=== PATIENT | female | born 1985 | race Caucasian/White ===

== ENCOUNTER 2023-06-07 20:08 | Emergency (ER) | payer MEDICAID, SELFPAY ==
[2023-06-07 20:14] VITALS: BP 176/88; PULSE 78; O2SAT 98
[2023-06-07 20:41] VITALS: BP 172/103; PULSE 79; RESP 18; TEMP 36.6; O2SAT 97; BMI 34.7
[2023-06-07 21:03] LABS: MANUAL DIFF FLAG NO
[2023-06-07 21:06] LABS: Appearance Urine Cloudy; Color Urine Yellow; Glucose Urine UA Negative (Negative); Leukocyte Esterase Urine Small (1+) (Negative); Nitrite Urine Negative (Negative); Specific Gravity - Urine 1.015 (1.005-1.025); UMIC TRIGGER UACC YES; Urine Blood Negative (Negative); Urine Ketones Negative (Negative); Urine Protein Negative (Neg-Trace)
[2023-06-07 21:08] LABS: Bacteria Urine 1+ (None Seen); Basophils Absolute Auto 0.1 X10*3/uL (0.0-0.2); Basophils Percent Auto 0.8 % (0-2); Eosinophils Absolute Auto 0.5 X10*3/uL (0.0-0.4); Eosinophils Percent Auto 5.4 % (0-4); Hematocrit 41.8 % (37.0-47.0); Hemoglobin 13.9 g/dl (12.0-16.0); Hyaline Casts Urine 0-2 /LPF (0-2); Imm Gran Abs Auto 0.02 X10*3/uL (0.00-0.03); Imm Gran Pct Auto 0.2 % (0.0-0.4); Lymphocytes Percent Auto 32.9 % (20-40); Mean Corpuscular HGB Conc 33.3 g/dl (31.0-35.0); Mean Corpuscular Hemoglobin 28.7 pg (27.0-33.0); Mean Corpuscular Volume 86.4 fL (80.0-98.0); Mean Platelet Volume 10.1 fL (9.4-12.3); Monocytes Absolute Auto 0.7 X10*3/uL (0.1-1.2); Monocytes Percent Auto 7.6 % (2-11); Neutrophils Absolute Auto 4.8 x10*3/uL (2.0-8.3); Neutrophils Percent Auto 53.1 % (45-73); Platelet Count 166 X10*3/uL (160-400); RBC Urine 0-2 /HPF (0-2); Red Blood Count 4.84 X10*6/uL (4.20-5.50); Red Cell Distribution Width 13.3 % (11.0-16.0); UACC Culture Trigger YES
[2023-06-07 21:18] LABS: Alanine Aminotransferase 7 U/L (0-31); Albumin Level 4.2 g/dL (3.5-5.0); Alkaline Phosphatase 60 U/L (39-117); Anion Gap 11 (12-20); Aspartate Amino Transferase 12 U/L (5-31); Bilirubin Direct 0.2 mg/dL (0.0-0.5); Bilirubin Total 0.3 mg/dL (0.0-1.0); Blood Urea Nitrogen 11 mg/dL (9-16); Calcium 9.1 mg/dL (8.4-10.2); Carbon Dioxide 28 mmol/L (22-29); Chloride 105 mmol/L (96-108); Creatinine Clr Calc Pharmacy 100.6; Estimated Glomerular Filt Rate > 60; Glucose Random 89 mg/dL (60-115); Lipase 22 U/L (8-78); Potassium 4.1 mmol/L (3.3-5.1); Sodium 140 mmol/L (135-145); Total Protein 6.9 g/dL (6.5-8.0)
[2023-06-07 21:26] LABS: HCG Quantitative < 2 mIU/mL
[2023-06-07 21:41] LABS: Influenza A PCR NEGATIVE (Negative); Influenza B PCR NEGATIVE (Negative); Resp Syncy Virus RNA Qual PCR NEGATIVE (Negative); SARS COV2 PCR INHOUSE NEGATIVE (Negative)
--- NOTE | 2023-06-08 01:06 | ED.GENADULT ---
HPI - General Adult General Chief complaint: Abdominal Pain Stated complaint: N/V as of this morning, possible Time Seen by Provider: 06/08/23 01:00 Source: patient, RN notes reviewed and old records reviewed Mode of arrival: EMS Limitations: no limitations History of Present Illness HPI narrative: 37-year-old female presents for evaluation of abdominal pain and vomiting. She reports that her symptoms started this morning. Denies any fevers, chills. She reports that she has not vomited since arrival to the ED over 4 hours ago Patient presents from a sober living house. She reports that she is taking metronidazole for bacterial vaginosis Denies any burning with urination or urinary frequency She denies drinking alcohol while taking metronidazole Denies any history abdominal surgeries Related Data Previous Rx's Medication Instructions Recorded ondansetron 4 mg disintegrating 4 mg PO Q8H PRN nausea and 06/08/23 tablet vomiting #20 tabs Allergies Allergy/AdvReac Type Severity Reaction Status Date / Time sulfamethoxazole Allergy Rash Verified 06/07/23 20:43 [From Bactrim] trimethoprim [From Bactrim] Allergy Rash Verified 06/07/23 20:43 Review of Systems Constitutional: Constitutional: Denies body ache(s), Denies chills and Denies fever(s) ENT: Denies sore throat Cardiovascular: Cardiovascular: Denies chest pain and Denies dyspnea Respiratory: Respiratory: Denies cough and Denies dyspnea Gastrointestinal: Gastrointestinal: Reports abdominal pain, Reports nausea and Reports vomiting Genitourinary: Genitourinary: Denies dysuria, Denies pelvic pain and Denies vaginal discharge Integumentary/Breasts: Skin/Breast: Denies rash PMFSH Social History Social History Advance Directives: No Advance Directives Information Provided: No Physical Exam ED Vital Signs: Vital Signs - 24 hr 06/07/23 20:41 Temperature 97.9 F Pulse Rate 79 Respiratory Rate 18 Blood Pressure 172/103 H Pulse Oximetry 97 Oxygen Delivery Method Room Air BMI result Body Mass Index 34.7 Const General: healthy appearing, comfortable, no acute distress, alert and awake Nutritional Appearance: well nourished Orientation/consciousness: patient oriented x3 HENMT Head: Yes normocephalic and Yes atraumatic Eyes Eyelids: Yes eyelids normal Conjunctivae: conjunctivae normal Sclerae: sclerae normal Corneas: corneas normal Pupils: Equal, round and reactive pupils present EOM: EOMs intact bilaterally Neck Neck: Yes full ROM Resp Effort & Inspection: normal respiratory effort, able to speak in complete sentences and not labored Cardio Rate: regular rate Rhythm: regular rhythm GI Inspection: No distended Palpation (GI): Soft to palpation, not firm, nontender, no guarding and not rigid Skin General skin exam: elasticity normal Neuro General: patient oriented x3 Cranial nerves: Yes CN's II-XII intact bilaterally, Yes Equal, round and reactive pupils present and Yes Bilaterally intact EOM present Cognition (Neuro): normal cognition Extrem Other: Moving all extremities well without any obvious deformities Medical Decision Making Medical Decision Making [facility] Narrative: 37-year-old female presents for evaluation of less than 24 hours of vomiting and generalized abdominal pain. She has not vomited or 4 hours since being in the ER. She has no leukocytosis or left shift. Her chemistries show no significant abnormalities. LFTs within normal limits, less likely biliary disease. The patient is not . Her urine had 1+ bacteria but the patient denies any symptoms and does not believe she has a UTI. Will await culture. Her physical exam is reassuring, she has no focal tenderness, rebound or guarding. Will defer CT imaging at this time. Patient's symptoms are likely viral in origin. Differential Diagnosis Differential Diagnoses: The differential diagnosis associated with the presentation includes Gastroenteritis Acute nausea/found Pancreatitis Cholecystitis Lab Data [facility] Lab Attestation statement: I reviewed the patient's lab results. See above 06/07/23 20:56 06/07/23 20:56 Labs: Lab Results 06/07/23 Range/Units 20:56 WBC 9.0 (4.8-10.8) X10*3/uL RBC 4.84 (4.20-5.50) X10*6/uL Hgb 13.9 (12.0-16.0) g/dl Hct 41.8 (37.0-47.0) % MCV 86.4 (80.0-98.0) fL MCH 28.7 (27.0-33.0) pg MCHC 33.3 (31.0-35.0) g/dl RDW 13.3 (11.0-16.0) % Plt Count 166 (160-400) X10*3/uL MPV 10.1 (9.4-12.3) fL Immature Gran % (Auto) 0.2 (0.0-0.4) % Neut % (Auto) 53.1 (45-73) % Lymph % (Auto) 32.9 (20-40) % [place] % (Auto) 7.6 (2-11) % Eos % (Auto) 5.4 H (0-4) % Baso % (Auto) 0.8 (0-2) % Lymph # (Auto) 3.0 (1.2-4.9) X10*3/uL Richardson # (Auto) 0.7 (0.1-1.2) X10*3/uL Eos # (Auto) 0.5 H (0.0-0.4) X10*3/uL Baso # (Auto) 0.1 (0.0-0.2) X10*3/uL Abs Immat Gran (auto) 0.02 (0.00-0.03) X10*3/uL Absolute Neuts (auto) 4.8 (2.0-8.3) x10*3/uL Absolute Nucleated RBC 0.000 (0.0-0.012) X10*3/uL Nucleated RBC % (auto) 0.0 (0.0-0.2) /100WBC Sodium 140 (135-145) mmol/L Potassium 4.1 (3.3-5.1) mmol/L Chloride 105 (96-108) mmol/L Carbon Dioxide 28 (22-29) mmol/L Anion Gap 11 L (12-20) BUN 11 (9-16) mg/dL Creatinine 0.78 (0.5-1.4) mg/dL Estim Creat Clear Calc 100.6 Estimated GFR > 60 Random Glucose 89 (60-115) mg/dL Calcium 9.1 (8.4-10.2) mg/dL Total Bilirubin 0.3 (0.0-1.0) mg/dL Direct Bilirubin 0.2 (0.0-0.5) mg/dL AST 12 (5-31) U/L ALT 7 (0-31) U/L Alkaline Phosphatase 60 (39-117) U/L Total Protein 6.9 (6.5-8.0) g/dL Albumin 4.2 (3.5-5.0) g/dL Lipase 22 (8-78) U/L Beta HCG, Quant < 2 mIU/mL Urine Color Yellow Urine Appearance Cloudy Urine pH 8.0 (5.0-9.0) Ur Specific [place] 1.015 (1.005-1.025) Urine Protein Negative (Neg-Trace) mg/dL Urine Glucose (UA) Negative (Negative) mg/dL Urine Ketones Negative (Negative) mg/dL Urine Blood Negative (Negative) Urine Nitrite Negative (Negative) Ur Leukocyte Esterase Small (1+) H (Negative) Urine RBC 0-2 (0-2) /HPF Urine WBC 11-20 H (0-5) /HPF Ur Squamous Epith Cells 11-20 (0-2) /HPF Urine Bacteria 1+ (None Seen) Hyaline Casts 0-2 (0-2) /LPF Influenza Type A (PCR) NEGATIVE (Negative) Influenza Type B (PCR) NEGATIVE (Negative) RSV RNA Qual (PCR) NEGATIVE (Negative) SARS-CoV-2 RNA (RT-PCR) NEGATIVE (Negative) Discharge Plan Discharge Clinical Impression: Vomiting Patient Disposition: Home, Self-Care Instructions: Acute Nausea and Vomiting (ED) Additional Instructions: Your workup in the ER today was reassuring. This includes your blood work. You are not . Your vomiting may be related to a virus but also could be related to the metronidazole that you are taking Use Zofran as needed for nausea/vomiting Drink lots of fluids, small sips at a time Follow-up with your primary doctor, return for new or worsening symptoms Prescriptions: New ondansetron 4 mg tablet,disintegrating 4 mg PO Q8H PRN (Reason: nausea and vomiting) Qty: 20 0RF
[2023-06-08] MEDS: Ondansetron ODT 4 MG TAB.RAPDIS TRANSLINGU (01:39)
[2023-06-08 01:41] VITALS: BP 134/78; PULSE 76; RESP 16; TEMP 36.8; O2SAT 96
== END 2023-06-08 01:40 | disposition home or self-care (01) ==
PROVIDERS: Emergency Provider Emergency Medicine
DX: R11.10 Vomiting, unspecified (principal); Z11.52 Encounter for screening for COVID-19; Z20.828 Contact with and (suspected) exposure to other viral communicable diseases
CPT/HCPCS: 0241U; 36415; 80053; 81001; 82248; 83690; 84702; 85025; 87086; 87147; 99282; 99283

== ENCOUNTER 2023-10-25 18:16 | Emergency (ER) | payer OTHER, SELFPAY ==
[2023-10-25 18:21] VITALS: BP 140/94; BP 143/78; PULSE 82; PULSE 89; RESP 16; TEMP 36.6; O2SAT 97; O2SAT 99; BMI 32.9
--- NOTE | 2023-10-25 18:34 | ED_ITS ---
HPI - Female Genitourinary General Chief complaint: Urogenital-Female Stated complaint: GH, tampon stuck in vaginal canal, uterine pain Time Seen by Provider: 10/25/23 18:34 Source: patient, EMS and RN notes reviewed Mode of arrival: EMS Limitations: no limitations History of Present Illness ED Provider: marjorie HPI Narrative: Patient is a 38-year-old female presenting to the emergency department from sober living house with concern for retained tampon. Reports inserting a tampon around 6 hours ago. Attempted to change her tampon and pad and could not find the tampon. State she did not see the tampon in the toilet. Continues to have vaginal bleeding and menstrual cramps. Reports history of having a retained tampon in the past which she states was retained for 3 months before falling out spontaneously. Denies history of TSS. Denies concern for STIs or . Denies any other vaginal discharge. MD elicited complaint: other Onset (ago): hour(s) Location of symptoms: vaginal Quality of pain: cramping Vaginal bleeding: heavy Related Data Previous Rx's ?Medication ?Instructions ?Recorded ondansetron 4 mg disintegrating 4 mg PO Q8H PRN nausea and 06/08/23 tablet vomiting #20 tabs Allergies Allergy/AdvReac Type Severity Reaction Status Date / Time fish derived [fish] Allergy Rash Verified 10/25/23 18:30 haloperidol [From Haldol] Allergy Muscle Verified 10/25/23 18:30 cramps sulfamethoxazole Allergy Rash Verified 10/25/23 18:24 [From Bactrim] trimethoprim [From Bactrim] Allergy Rash Verified 10/25/23 18:24 Review of Systems Review of Systems: As per HPI. Yes all other systems are reviewed and are negative Constitutional: Constitutional: Reports as per HPI Physical Exam Vital Signs: Vital Signs: Last Vital Signs Temp 97.9 F 10/25/23 18:21 Pulse 89 10/25/23 18:21 Resp 16 10/25/23 18:21 BP 143/78 H 10/25/23 18:21 Pulse Ox 97 10/25/23 18:21 O2 Del Method Room Air 10/25/23 18:21 BMI result Body Mass Index 32.9 Vital signs have been reviewed and appear to be correct. Blood pressure elevated. Heart rate normal. Respiratory rate normal. Temperature normal. Oxygen saturation normal. Const: General: cooperative, healthy appearing and no acute distress Orientation/consciousness: oriented to person, oriented to place, oriented to time and patient oriented x3 Limitations: no limitations HEENT: Head: Yes normocephalic and Yes atraumatic Ears: external ears normal General nose exam: Normal external nose present Face and sinus: Yes face symmetric Mouth: oropharynx normal and moist mucous membranes Throat: Yes uvula midline Eyes: Pupils: Equal, round and reactive pupils present Neck: Neck: Yes normal visual inspection and Yes supple Resp: Effort & Inspection: normal respiratory effort and able to speak in complete sentences Auscultation: clear to auscultation bilaterally Cardio: Rate: regular rate Rhythm: regular rhythm Heart sounds: S1 normal heart sound present and S2 normal heart sound present GI: Palpation (GI): Soft to palpation and nontender Auscultation: no rmoactive bowel sounds : Other: Exam chaperoned by BEAU Currie General: Yes no CVA tenderness External Female Exam: normal external appearance Speculum Exam - Vagina: normal appearance of the vagina, normal palpation, no foreign bodies and vaginal bleeding Speculum Exam - Cervix: normal appearance of the cervix, normal palpation and Cervical os closed Bimanual exam- vagina & uterus: normal palpation and normal palpation OB/external & speculum: vaginal bleeding; no foreign bodies Back/Spine/Pelvis: Back: no CVA tenderness Skin: General skin exam: elasticity normal and turgor normal Neuro: General: oriented to person, oriented to place, oriented to time, patient oriented x3, moves all extremities, no focal motor deficits and CN's II- XI intact bilaterally Cranial nerves: Yes Equal, round and reactive pupils present Cognition (Neuro): normal cognition Extrem: General: Yes full ROM, Yes no pedal edema and Yes no calf tenderness Psych: Mental Status: mental status grossly normal Affect: normal affect Thought process: Normal thought process present Medical Decision Making Medical Decision Making MDM Narrative: Patient is a 38-year-old female presenting to the emergency department from sober living house with concern for retained tampon. On exam patient is awake, A+Ox3, VS WNL, afebrile, normal neurological exam without focal deficits, physical exam findings as above. Given reported symptoms and physical exam findings, initial differential includes retained tampon. No visible foreign body on pelvic exam chaperoned by RN. Discussed with patient that the tampon likely fell into the toilet without her noticing. Discussed signs and symptoms for which patient should return to the ED. Follow up with [facility]. Differential Diagnosis Differential Diagnoses: The differential diagnosis associated with the pre sentation includes As per [facility] External Record Review External record reviewed: Inpatient record, Office record and Outpatient record Discharge Plan Discharge Clinical Impression: Retained tampon not found on examination Patient Disposition: Home, Self-Care Instructions: Vaginal Foreign Body (ED) Additional Instructions: You presented to the emergency department today for concern of tampon retained in the vagina. No evidence of this was found on pelvic exam. It is possible that the tampon fell into the toilet without you noticing. Follow up with your [facility]END[facility]. Return to the emergency department if you develop fever, chills, s weats, body aches, nausea and vomiting, abnormal vaginal discharge or any other concerning symptoms. Prescriptions: No Action ondansetron 4 mg tablet,disintegrating 4 mg PO Q8H PRN (Reason: nausea and vomiting) Qty: 20 0RF Print Language: Tanzanian
[2023-10-25 18:53] VITALS: BP 143/78; PULSE 89; RESP 16; TEMP 36.6; O2SAT 97
== END 2023-10-25 19:04 | disposition home or self-care (01) ==
LOC: HO.ED 18:57
PROVIDERS: Emergency Provider Emergency Medicine
DX: N94.89 Other specified conditions associated with female genital organs and menstrual cycle (principal)
CPT/HCPCS: 99282

== ENCOUNTER 2023-11-14 18:19 | Emergency (ER) | payer OTHER, SELFPAY ==
[2023-11-14 18:24] VITALS: BP 120/80
[2023-11-14 18:27] VITALS: BP 120/67; PULSE 88; RESP 14; TEMP 36.7; O2SAT 97
[2023-11-14 18:35] LABS: MANUAL DIFF FLAG NO
[2023-11-14 18:36] LABS: Basophils Absolute Auto 0.1 X10*3/uL (0.0-0.2); Basophils Percent Auto 1.1 % (0-2); Eosinophils Absolute Auto 0.2 X10*3/uL (0.0-0.4); Eosinophils Percent Auto 3.9 % (0-4); Hematocrit 39.3 % (37.0-47.0); Hemoglobin 12.9 g/dl (12.0-16.0); Imm Gran Abs Auto 0.03 X10*3/uL (0.00-0.03); Imm Gran Pct Auto 0.5 % (0.0-0.4); Lymphocytes Absolute Auto 2.1 X10*3/uL (1.2-4.9); Mean Corpuscular HGB Conc 32.8 g/dl (31.0-35.0); Mean Corpuscular Hemoglobin 28.9 pg (27.0-33.0); Mean Corpuscular Volume 88.1 fL (80.0-98.0); Mean Platelet Volume 10.5 fL (9.4-12.3); Monocytes Absolute Auto 0.6 X10*3/uL (0.1-1.2); Neutrophils Percent Auto 49.5 % (45-73); Platelet Count 148 X10*3/uL (160-400); Red Blood Count 4.46 X10*6/uL (4.20-5.50); Red Cell Distribution Width 14.2 % (11.0-16.0); White Blood Count 6.1 X10*3/uL (4.8-10.8)
[2023-11-14 18:49] LABS: Alanine Aminotransferase 8 U/L (0-31); Albumin Level 3.8 g/dL (3.5-5.0); Alkaline Phosphatase 65 U/L (39-117); Anion Gap 11 (12-20); Aspartate Amino Transferase 12 U/L (5-31); Bilirubin Total 0.1 mg/dL (0.0-1.0); Blood Urea Nitrogen 18 mg/dL (9-16); Calcium 8.9 mg/dL (8.4-10.2); Carbon Dioxide 27 mmol/L (22-29); Chloride 109 mmol/L (96-108); Creatinine Clr Calc Pharmacy 81.8; Estimated Glomerular Filt Rate > 60; Glucose Random 141 mg/dL (60-115); Potassium 4.2 mmol/L (3.3-5.1); Sodium 143 mmol/L (135-145); Total Protein 6.3 g/dL (6.5-8.0)
[2023-11-14 19:27] VITALS: BP 96/64; PULSE 63; RESP 16; TEMP 36.9; O2SAT 99
--- NOTE | 2023-11-14 20:35 | PC.NURSE ---
pt refused ua sample. awaiting primary eval by ed provider.
--- NOTE | 2023-11-14 22:06 | ED_ITS ---
HPI - GI Bleed General Chief complaint: Abdominal Pain Stated complaint: Minor rectalbleeding, adverse rxn to vivitrol? Time Seen by Provider: 11/14/23 22:05 Source: patient Mode of arrival: ambulatory Limitations: no limitations History of Present Illness ED Provider: Dr. Mariano Olson HPI Narrative: 38-year-old female history of asthma, cocaine and alcohol use disorder who presents emergency department for evaluation of constipation and bright red blood per rectum. Patient states that she had a bowel movement earlier today. She states that prior to coming to emergency department she was straining to move a large stool when she noted bright red blood in the toilet bowl. She states that she was not having blood coming from her rectum at this time but she does feel like she has to move her bowels and she feels constipated. She denied abdominal pain. She denied nausea, vomiting, fever or chills. She states that the only new medication she has been started on his Vivitrol. Related Data Previous Rx's ?Medication ?Instructions ?Recorded ondansetron 4 mg disintegrating 4 mg PO Q8H PRN nausea and 06/08/23 tablet vomiting #20 tabs docusate sodium 100 mg capsule 100 mg PO BID 14 days #28 caps 11/14/23 (Colace) sennosides 17.2 mg tablet (Senokot 17.2 mg PO BID PRN constipation 11/14/23 Extra Strength) #14 tabs Allergies Allergy/AdvReac Type Severity Reaction Status Date / Time fish derived [fish] Allergy Rash Verified 11/14/23 18:26 haloperidol [From Haldol] Allergy Muscle Verified 11/14/23 18:26 cramps sulfamethoxazole Allergy Rash Verified 11/14/23 18:26 [From Bactrim] trimethoprim [From Bactrim] Allergy Rash Verified 11/14/23 18:26 Review of Systems 2 Review of Systems: Yes all other systems are reviewed and are negative [facility] Past Medical History [facility] Narrative: Social history: She was currently living in a sober house. She denies tobacco alcohol and drug use. She states she was using alcohol and cocaine. Social History Social History Smoked in Last 30 Days: No Use of substances other than those prescribed or required for medical reasons: No Advance Directives: No Advance Directives Information Provided: No Do you have a plan to hurt others: No Plan Patient : No Physical Exam 2 Vital Signs: Vital Signs: Last Vital Signs Temp 98.4 F 11/14/23 19:27 Pulse 63 11/14/23 19:27 Resp 16 11/14/23 19:27 BP 96/64 11/14/23 19:27 Pulse Ox 99 11/14/23 19:27 O2 Del Method Room Air 11/14/23 19:27 BMI result Body Mass Index 30.0 Vital signs were normal Exam: General: Awake, alert in no distress Head: Normocephalic, atraumatic EENT: PERRL, Lids normal, sclera normal, conjunctiva normal, nose normal , ears normal, throat without erythema or exudates Neck: Supple, no adenopathy Lung: breath sounds symmetric, no wheezing, rales or rhonchi Chest: symmetric movement, nontender Heart: regular rate and rhythm, normal S1, S2 no murmurs or rubs Abdomen: soft, non-tender, nondistended, normal bowel sounds Back: no vertebral tenderness, no CVAT Extremities: no deformities, moves all extremities symmetrically Neuro: Awake, alert, oriented, normal speech, cranial nerves intact, moves all extremities symmetrically Psych: Pleasant, cooperative Medical Decision Making Medical Decision Making MDM Narrative: 38-year-old female history of asthma, cocaine and alcohol use disorder who presents emergency department for evaluation of constipation and bright red blood per rectum after straining to move her bowels. Patient states she does feel constipated and still has to move her bowels. She was not having any bright red blood per rectum at this time. Vital signs were unremarkable. Abdominal exam was normal. Patient refused rectal exam. Differential diagnosis: ?Includes but is not limited to constipation, hemorrhoids, lower GI bleed Following evaluation was ordered: CBC , CMP, lipase Patient was initially treated with the following: Colace 100 mg orally, extra- strength Senokot 17.2 mg orally Course: Patient's laboratory evaluation was unremarkable. Patient's presentation is consistent with constipation straining at the stool. The patient does not want a rectal exam or enema and is requesting oral medications. Patient was started on Colace 100 mg twice a day for 2 weeks and extra-strength Senokot every 12 hours as needed for bowel movements. She was given printed and verbal instructions discharged home. Admission/Observation Consideration of admission/observation: Escalation of care including admission/observation considered (Yes) Lab Data [facility] Lab Attestation statement: I reviewed the patient's lab results. My independent interpretation patient's laboratory evaluation as follows: Platelet count was low 140,000. Glucose elevated 114. 11/14/23 18:32 11/14/23 18:32 Labs: Lab Results 11/14/23 Range/Units 18:32 WBC 6.1 (4.8-10.8) X10*3/uL RBC 4.46 (4.20-5.50) X10*6/uL Hgb 12.9 (12.0-16.0) g/dl Hct 39.3 (37.0-47.0) % MCV 88.1 (80.0-98.0) fL MCH 28.9 (27.0-33.0) pg MCHC 32.8 (31.0-35.0) g/dl RDW 14.2 (11.0-16.0) % Plt Count 148 L (160-400) X10*3/uL MPV 10.5 (9.4-12.3) fL Immature Gran % (Auto) 0.5 H (0.0-0.4) % Neut % (Auto) 49.5 (45-73) % Lymph % (Auto) 35.0 (20-40) % [place] % (Auto) 10.0 (2-11) % Eos % (Auto) 3.9 (0-4) % Baso % (Auto) 1.1 (0-2) % Lymph # (Auto) 2.1 (1.2-4.9) X10*3/uL [place] # (Auto) 0.6 (0.1-1.2) X10*3/uL Eos # (Auto) 0.2 (0.0-0.4) X10*3/uL Baso # (Auto) 0.1 (0.0-0.2) X10*3/uL Abs Immat Gran (auto) 0.03 (0.00-0.03) X10*3/uL Absolute Neuts (auto) 3.0 (2.0-8.3) x10*3/uL Absolute Nucleated RBC 0.000 (0.0-0.012) X10*3/uL Nucleated RBC % (auto) 0.0 (0.0-0.2) /100WBC Sodium 143 (135-145) mmol/L Potassium 4.2 (3.3-5.1) mmol/L Chloride 109 H (96-108) mmol/L Carbon Dioxide 27 (22-29) mmol/L Anion Gap 11 L (12-20) BUN 18 H (9-16) mg/dL Creatinine 0.95 (0.5-1.4) mg/dL Estim Creat Clear Calc 81.8 Estimated GFR > 60 Random Glucose 141 H (60-115) mg/dL Calcium 8.9 (8.4-10.2) mg/dL Total Bilirubin 0.1 (0.0-1.0) mg/dL AST 12 (5-31) U/L ALT 8 (0-31) U/L Alkaline Phosphatase 65 (39-117) U/L Total Protein 6.3 L (6.5-8.0) g/dL Albumin 3.8 (3.5-5.0) g/dL Prescription Management I considered prescription management with: Other (Laxatives and stool softeners) Chronic Conditions Patient?s care impacted by: Other (Asthma) Discharge Plan Discharge Clinical Impression: Constipation, Bright red blood per rectum Patient Disposition: Home, Self-Care Instructions: Constipation (ED) Additional Instructions: Your blood work was normal. The blood that you saw was caused by you being very constipated and straining to move your bowels. Increase your fluid intake Take Colace stool softener 100 mg twice a day for 2 weeks. Take extra-strength Senokot 1 pill twice a day for 4 days. This is a laxative and should help you move your bowels. Follow-up with your doctor in 2 days. Please return to the emergency department if your symptoms get worse or if you develop any symptoms that are concerning to you. Prescriptions: New docusate sodium [Colace] 100 mg capsule 100 mg PO BID 14 Days Qty: 28 0RF Senokot Extra Strength 17.2 mg tablet 17.2 mg PO BID PRN (Reason: constipation) Qty: 14 0RF No Action ondansetron 4 mg tablet,disintegrating 4 mg PO Q8H PRN (Reason: nausea and vomiting) Qty: 20 0RF Print Language: Algerian
[2023-11-14 22:23] VITALS: BP 127/68; PULSE 79; RESP 16; TEMP 36.7; O2SAT 98
[2023-11-14] MEDS: Sennosides 8.6 MG TABLET 17.2 MG PO (23:00)
[2023-11-14] MEDS: Docusate Sodium 100 MG CAPSULE PO (23:00)
[2023-11-14 23:09] VITALS: BP 127/68; PULSE 79; RESP 16; TEMP 36.7; O2SAT 98
== END 2023-11-14 23:11 | disposition home or self-care (01) ==
PROVIDERS: Emergency Provider Emergency Medicine Emergency Medical Services
DX: K59.00 Constipation, unspecified (principal); K62.5 Hemorrhage of anus and rectum
CPT/HCPCS: 36415; 80053; 85025; 99283; 99284

== ENCOUNTER 2024-12-21 15:16 | Inpatient (IN) | payer OTHER, SELFPAY ==
[2024-12-21 15:29] VITALS: BP 178/82; PULSE 85; TEMP 36.1; O2SAT 92
[2024-12-21 15:30] VITALS: BMI 36.8
--- NOTE | 2024-12-21 16:51 | PC.ADMIT ---
Celeste arrived to at approximately 15:30 via ambulance stretcher, coming from [facility]. She?is a 39yr old female admitted, on a CV, for SI. Patient presented to [facility] ED for Asthma/SOB. She was treated there with prednisone & nebulizers. Upon discharge planning, Celeste then reported SI with a plan to cut her wrists. Medical record documents history of Bipolar, PTSD, Cocaine use disorder, Alcohol use disorder & Cannabis use. There was no Tox Screen done at [facility]. Celeste is alert, oriented and very irritable on initial assessment. Although angry & short with staff, she was cooperative with clothing changeover. Her skin check is unremarkable & she is actively menstruating. Feminine sanitary pads given. Celeste is homeless. She endorses high anxiety & depression, denies current SI/HI/AVH. Celeste declines to sign NEETA?s at this time. She was oriented to the unit & placed on 15min safety checks. Celeste contracts for safety on the unit at this time.
[2024-12-21] MEDS: Albuterol Sulfate 90 MCG 8 GM INHALER 2 PUFF INHALE (19:22)
[2024-12-21 19:54] VITALS: BP 178/96
[2024-12-21 22:29] VITALS: BP 178/96; PULSE 82; RESP 16; TEMP 36.9; O2SAT 97
[2024-12-21 22:30] VITALS: BP 178/96; PULSE 82; RESP 18; TEMP 36.9; O2SAT 97
[2024-12-22 08:00] VITALS: RESP 16
--- NOTE | 2024-12-22 08:13 | HO.PM.IMCN ---
History of Present Illness Data of Consult Service Date: 12/22/24 Primary Care Provider: Unknown Physician HPI Reason for consult: Medical consult 39-year-old female with a past medical history of asthma, anxiety, bipolar depression, hypertension, hypothyroidism. PTSD, EtOH use disorder, cocaine use disorder presented to [facility] ER with initial reports of asthma, reported that she has suicide ideation with a plan to slit her wrists. EKG demonstrated normal sinus rhythm, borderline QTC, troponins were negative. Chest x-ray without evidence of pneumonia, viral swab negative for COVID. Electrolytes within normal limit except for a mildly elevated glucose. CBC with mild elevation in white blood cell count, no anemia. Patient's TSH is markedly elevated with a low free T4. Per patient's report she has been taking levothyroxine however no outside records are available for this and the pharmacy she reports that she feels her medication has had no record of filling levothyroxine in the past. Patient was also treated for an asthma exacerbation in the ED. Started on prednisone 50 mg for 5 days. Today is day 2. She will need an additional 3 doses. Patient is not happy about the inhaler that is ordered. Explained to her that Breo is on formulary. She did refused this morning. Her affect is irritable, refusing to reliably focus and answer questions. She has diffuse wheezing, no fever or chills. She denies any other health concerns. Review of Systems Review of Systems: Denies any shortness of breath, chest pain, palpitations, dizziness, lightheadedness, headaches, dysuria, abdominal pain or discomfort, nausea, vomiting or diarrhea. Denies chills, body aches, muscle aches, fatigue or weight loss. PMFSH Social History Household Members: None Housing: Homeless Do you presently have visiting nurse or other home services: No Patient Tobacco Use Status: Current everyday Tobacco user Tobacco use type: Cigarette Cigarettes Per Day: 5 Second Hand Smoke Exposure: No Currently Displaying Signs/Symptoms of Drug Intoxication Withdrawal: No Have you been hit, kicked, punched, or otherwise hurt by someone within the past year? If so, by whom?: No Do you feel safe in your current relationship?: No Current Relationship Is there a partner from a previous relationship who is making you feel unsafe now?: No Advance Directives: No Advance Directives Information Provided: Yes Do you have thoughts of harming others: None Do you have a plan to hurt others: No Plan Recently lost weight without trying: No Eating poorly because of decreased appetite: No Nutrition Risks: No Nutritional Risk Patient : No : No Poor oral hygiene: No Meds Allergies Allergy/AdvReac Type Severity Reaction Status Date / Time fish derived (fish) Allergy Rash Verified 11/14/23 18:26 haloperidol (From Haldol) Allergy Muscle Verified 11/14/23 18:26 cramps sulfamethoxazole (From Allergy Rash Verified 11/14/23 18:26 Bactrim) trimethoprim (From Bactrim) Allergy Rash Verified 11/14/23 18:26 Active Medications: Current Medications Acetaminophen (Acetaminophen 325 Mg Tablet) 650 mg PO Q6H PRN PRN Reason: Headache/Pain, Scale 1-10 Al Hydroxide/Mg Hydroxide (Magnesium Hydrox/Alum Hydrox 30 Ml Oral.Susp) 30 ml PO Q6H PRN PRN Reason: Heartburn/Nausea Albuterol Sulfate (Albuterol Sulfate 90 Mcg 8 Gm Inhaler) 2 puff INHALE Q4H PRN PRN Reason: Wheezing Last Admin: 12/21/24 19:22 Dose: 2 puff Clonidine HCl (Clonidine Hcl 0.2 Mg Tablet) 0.2 mg PO BID [facility]; Protocol Last Admin: 12/21/24 19:54 Dose: 0.2 mg Fluticasone/Vilanterol (Fluticasone/Vilanterol 100/25 Blst.W.Dev) 1 puff INHALE RDAILY [facility] Guaifenesin (Guaifenesin 100 Mg/5 Ml 5 Ml Liquid) 5 ml PO Q6H PRN PRN Reason: Cough Hydroxyzine HCl (Hydroxyzine Hcl 25 Mg Tablet) 25 mg PO Q6H PRN PRN Reason: mild anxiety Last Admin: 12/21/24 18:25 Dose: 25 mg Magnesium Hydroxide (Milk Of Magnesia 30 Ml Oral.Susp) 30 ml PO DAILY PRN PRN Reason: Constipation Ondansetron HCl (Ondansetron Odt 4 Mg Tab.Rapdis) 4 mg TRANSLINGU Q8H PRN PRN Reason: Nausea and Vomiting Quetiapine Fumarate (Quetiapine Fumarate 100 Mg Tablet) 100 mg PO BEDTIME [facility] Last Admin: 12/21/24 19:54 Dose: 100 mg Trazodone HCl (Trazodone Hcl 50 Mg Tablet) 50 mg PO BEDTIME MRX1 PRN PRN Reason: Insomnia Last Admin: 12/21/24 19:55 Dose: 50 mg Home Medications ?Medication ?Instructions ?Recorded ?Confirmed ?Last Taken ?Type albuterol sulfate 90 mcg/actuation 2 puff inhalation Q4H PRN wheezing 12/21/24 12/21/24 Unknown History aerosol inhaler (Ventolin HFA) clonidine HCl 0.2 mg tablet 0.2 mg PO BID 12/21/24 12/21/24 Unknown History fluticasone 250 mcg-salmeterol 50 1 inh inhalation BID 12/21/24 12/21/24 Unknown History mcg/dose blistr powdr for inhalation (Advair Diskus) quetiapine 100 mg tablet 100 mg PO BEDTIME 12/21/24 12/21/24 Unknown History Physical Exam Vital Signs and Narrative: Vital Signs: Last Vital Signs Temp 98.5 F 12/21/24 22:30 Pulse 82 12/21/24 22:30 Resp 18 12/21/24 22:30 BP 178/96 H 12/21/24 22:30 Pulse Ox 97 12/21/24 22:30 O2 Del Method Room Air 12/21/24 22:30 BMI result Body Mass Index 36.8 CONST: Alert and irritable, in NAD. Well nourished. Easily arousable HEENT: Normocephalic, atraumatic, MMM, Eyes clear, Neck supple RESP: Lungs clear, RRR even and regular HEART:,RRR, S1, S2. No edema GI:Abdomen Soft NT, ND. + BS times four. Obese abdomen. :Deferred SKIN: Warm dry and intact, no visible lesions or rashes NEURO:CN II-XII Intact bilaterally, Sensation intact. Speech clear PSYCH: Irritable and manuel. Assessment and Plan (1) Hypothyroidism: Status: Acute Plan 39-year-old female with a past medical history as listed below presented to the ED at [facility] initially with a asthma exacerbation, expressed suicide ideation and felt to be appropriate for inpatient level of care. Admitted here for further care Bipolar/depression/PTSD/cocaine use disorder/EtOH use disorder Treatment per psychiatric team Asthma with acute exacerbation Patient was seen at [facility] with reports of asthma symptoms for 1 week Chest x-ray was negative, WBC within normal limits. Will need to complete course of 50 mg of prednisone daily for a total of 5 days Continue Breo, educated patient that Breo was on formulary. Continue albuterol as needed Hypertension Patient on clonidine 0.2 mg twice daily Continue to monitor and adjust as needed Type 2 diabetes Patient currently taking metformin 500 daily Encouraged exercise and lifestyle changes. Recent A1c 6.0 Hypothyroidism Unclear whether patient has been taking medication for hypothyroidism as no available outside records Ideally dose based on her weight should be approximately 150 mcg Start at 50 mcg and check her TSH in 4-6 weeks. She will need follow up with her primary care Thank you for allowing me to participate in the care of this patient. Will follow as needed, please notify medical provider with any changes in condition or concerns.
[2024-12-22 08:19] LABS: Hemoglobin A1C 136.4162 umol/L; Total Hemoglobin (HGBA1C) 3230.6301 umol/L
[2024-12-22 08:33] LABS: Cholesterol 141 mg/dL (<200); HDL Cholesterol 40 mg/dL (>40); Magnesium 2.0 mg/dL (1.6-2.6); Triglycerides 99 mg/dL (<150)
[2024-12-22 08:50] LABS: Free T4 (Free Thyroxine) 0.55 ng/dL (0.71-1.85); Thyroid Stimulating Hormone 32.26 uIU/mL (0.32-4.0)
[2024-12-22 09:01] LABS: Folate 6.0 ng/mL (> or = 4.0); Vitamin B12 557 pg/mL (200-900)
[2024-12-22 10:35] VITALS: BP 146/81; PULSE 88
[2024-12-22] MEDS: Albuterol Sulfate 90 MCG 8 GM INHALER 2 PUFF INHALE ×2 (10:39→19:19)
--- NOTE | 2024-12-22 12:43 | P.HPPS_ITS ---
HPI Date of Service: 12/22/24 Chief Complaint: bipolar d/o Sources of Information: patient interviewed, chart reviewed and crisis/core team assessment reviewed Additional Sources of Information: Seen 1030am HPI Subjective Notes: [place] Warning and Conditional Voluntary Healthcare Proxy: No Guardianship: No Medical Problems Affecting Mental Status: No Narrative: 39 yo female, transfer from [facility] where she presented with [employer]OE[employer]RIC [employer]F for asthma 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 Team attempted to meet with pt this a.m. She was very agitated and asks that this be done another day. Reports she has not slept in several days. She reports meds are incorrect and asks that we call [facility] for reconcilliation which was completed. Medical Evaluation Reviewed: Yes [facility] Medical History (Updated 12/22/24 @ 19:21 by Ruma Mcneill, SATURATOR) Cocaine use disorder Psychosis Narrative: HTN, Hypothyroid Narrative: R Wrist ORIF 11/19/22 Social History: 2 children Substance History: alcohol, cocaine, cannabis hx Suboxone Diagnostics Vital Signs (24Hr): Vital Signs - 24 hr 12/21/24 15:29 12/21/24 19:54 12/21/24 22:29 Temperature 97 F 98.5 F Pulse Rate 85 82 Respiratory Rate 16 Blood Pressure 178/82 H 178/96 H 178/96 H Pulse Oximetry 92 97 Oxygen Delivery Method Room Air Room Air 12/21/24 22:30 12/22/24 08:00 12/22/24 10:35 Temperature 98.5 F Pulse Rate 82 88 Respiratory Rate 18 16 Blood Pressure 178/96 H 146/81 H Pulse Oximetry 97 Oxygen Delivery Method Room Air BMI result Body Mass Index 36.8 Labs Labs: Laboratory Results - last 48 hr 12/22/24 08:01 Estimat Average Glucose 126 Hemoglobin A1c % 6.0 Magnesium 2.0 Triglycerides 99 Cholesterol 141 LDL Cholesterol, Calc 82 HDL Cholesterol 40 L Vitamin B12 557 Folate 6.0 TSH 32.26 H Free T4 0.55 L WBC 12.46 CMP WNL EKG EKG Comment: QTC 469 Imaging Radiology Impressions: CXR WNL Meds/Allergies Meds Home Medications ?Medication ?Instructions ?Recorded ?Confirmed ?Type albuterol sulfate 90 mcg/actuation 2 puff inhalation Q 4H PRN wheezing 12/21/24 12/21/24 History aerosol inhaler (Ventolin HFA) clonidine HCl 0.2 mg tablet 0.2 mg PO BID 12/21/2411/07 History fluticasone 250 mcg-salmeterol 50 1 inh inhalation BID 12/21/24 12/21/24 History mcg/dose blistr powdr for inhalation (Advair Diskus) quetiapine 100 mg tablet 100 mg PO BEDTIME 12/21/24 1 History Allergies Allergies Allergy/AdvReac Type Severity Reaction Status Date / Time fish derived (fish) Allergy Rash Verified 11/14/23 18:26 haloperidol (From Haldol) Allergy Muscle Verified 11/14/23 18:26 cramps sulfamethoxazole (From Allergy Rash Verified 11/14/23 18:26 Bactrim) trimethoprim (From Bactrim) Allergy Rash Verified 11/14/23 18:26 Mental Status Exam Mental Status Exam Patient Appearance: Fatigued, Disheveled and Unkempt Patient Orientation: Person, Place and Situation Level of Consciousness: Restless and Alert Patient Behavior: Guarded, Suspicious and Poor Eye Contact Mood Description: Labile and Angry Affect Description: Labile and Angry Patient Cognition Impaired: No Speech Pattern: Spontaneous Speech Memory Description: Remote Impaired and Episodic Impaired Hallucinations: None Delusions: Paranoid Ideation and Present Perceptual Disturbances: Depersonalization and Derealization Thought Process: Distracted and Rumination Thought Content: positive for [place] and positive for Perseveration Depressive Symptoms: Insomnia, Increased Irritability, Difficulty Sleeping, Isolating-Friends/Family, Increased Fatigue, Low Self Esteem and Difficulty Concentrating Abnormal Motor Activity Signs and Symptoms: Agitation and Restlessness Judgement: Poor Assessment & Plan Assessment & Plan (1) Psychosis: Status: Acute Code(s): F29 - Unspecified psychosis not due to a substance or known physiological condition (2) Cocaine use disorder: Status: Acute Code(s): F14.10 - Cocaine abuse, uncomplicated Plan 39 yo female, transfer from [facility] where she 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 Team attempted to meet with pt this a.m. She was very agitated and asks that this be done another day. Reports she has not slept in several days. She reports meds are incorrect and asks that we call [facility] Colin for reconciliation which was completed. Plan: Admit, CV, 15 minute checks Med rec completed 12/[address] Encourage milieu involvement Diagnostics as needed Collateral contacts Aftercare planning Patient educated on: other Reason for continued inpatient stay Substantial Risk for: rapid decompensation Statement Statement: I have reviewed the history and physical and performed a pertinent examination on my patient. No changes have occurred unless specified. If the History and Physical was not performed prior to admission, the Hospitalist's service will be consulted for completing the admission physical. Time Spent With Patient Time: Total time managing care of this patient today ____ minutes.
[2024-12-22 20:31] VITALS: BP 184/80; PULSE 85; RESP 16; TEMP 36.8; O2SAT 94
[2024-12-22 20:40] VITALS: BP 184/80
[2024-12-23 08:00] VITALS: BP 152/76; PULSE 75; TEMP 36.3; O2SAT 94
--- NOTE | 2024-12-23 09:52 | HO.PSYCHPN ---
Subjective Subjective Date of Service: 12/23/24 Reason For Visit: bipolar d/o Subjective Notes: Conditional Voluntary Healthcare Proxy: No Guardianship: No Medical Problems Affecting Mental Status: No Interim History: I want to leave now. Labile, screaming, met very briefly with tw and [place] PAPPAS. Demanding discharge, agitated, unable to make a coherent case for consideration to discharge. Screams, I had not slept for 6 days. . I don't want to talk about it. Refused all offers for assistance today. Medication Compliance: Yes Side effects from medications: No Attending Groups: No Review of Systems unknown Medical Review of Systems: unchanged Review of Systems Review of Systems Pt will not discuss Mental Status Exam Mental Status Exam Patient Appearance: Fatigued, Disheveled and Unkempt Patient Orientation: Person, Place and Situation Level of Consciousness: Restless and Alert Patient Behavior: Guarded, Suspicious and Poor Eye Contact Mood Description: Labile and Angry Affect Description: Labile and Angry Patient Cognition Impaired: No Speech Pattern: Spontaneous Speech Memory Description: Remote Impaired and Episodic Impaired Hallucinations: None Delusions: Paranoid Ideation and Present Perceptual Disturbances: Depersonalization and Derealization Thought Process: Distracted and Rumination Thought Content: positive for [place] and positive for Perseveration Depressive Symptoms: Insomnia, Increased Irritability, Difficulty Sleeping, Isolating-Friends/Family, Increased Fatigue, Low Self Esteem and Difficulty Concentrating Abnormal Motor Activity Signs and Symptoms: Agitation and Restlessness Judgement: Poor Diagnostics Vital Signs (24Hr): Vital Signs - 24 hr 12/22/24 10:35 12/22/24 20:31 12/22/24 20:40 Temperature 98.2 F Pulse Rate 88 85 Respiratory Rate 16 Blood Pressure 146/81 H 184/80 H 184/80 H Pulse Oximetry 94 Oxygen Delivery Method Room Air 12/23/24 08:00 Temperature 97.3 F Pulse Rate 75 Respiratory Rate Blood Pressure 152/76 H Pulse Oximetry 94 Oxygen Delivery Method Room Air BMI result Body Mass Index 36.8 Labs Labs: Laboratory Results - last 48 hr 12/22/24 08:01 Estimat Average Glucose 126 Hemoglobin A1c % 6.0 Magnesium 2.0 Triglycerides 99 Cholesterol 141 LDL Cholesterol, Calc 82 HDL Cholesterol 40 L Vitamin B12 557 Folate 6.0 TSH 32.26 H Free T4 0.55 L Medications Medications Current Medications Acetaminophen (Acetaminophen 325 Mg Tablet) 650 mg PO Q6H PRN PRN Reason: Headache/Pain, Scale 1-10 Al Hydroxide/Mg Hydroxide (Magnesium Hydrox/Alum Hydrox 30 Ml Oral.Susp) 30 ml PO Q6H PRN PRN Reason: Heartburn/Nausea Albuterol Sulfate (Albuterol Sulfate 90 Mcg 8 Gm Inhaler) 2 puff INHALE Q4H PRN PRN Reason: Wheezing Last Admin: 12/22/24 19:19 Dose: 2 puff Benztropine Mesylate (Benztropine Mesylate 1 Mg Tablet) 1 mg PO BID [facility] Last Admin: 12/23/24 08:40 Dose: 1 mg Clonidine HCl (Clonidine Hcl 0.1 Mg Tablet) 0.1 mg PO BID [facility]; Protocol Last Admin: 12/23/24 08:40 Dose: 0.1 mg Diphenhydramine HCl (Diphenhydramine Hcl 25 Mg Capsule) 50 mg PO Q4H PRN PRN Reason: agitation, anxiety Fluticasone/Vilanterol (Fluticasone/Vilanterol 100/25 Blst.W.Dev) 1 puff INHALE RDAILY [facility] Last Admin: 12/23/24 08:48 Dose: Not Given Guaifenesin (Guaifenesin 100 Mg/5 Ml 5 Ml Liquid) 5 ml PO Q6H PRN PRN Reason: Cough Hydroxyzine HCl (Hydroxyzine Hcl 25 Mg Tablet) 25 mg PO Q6H PRN PRN Reason: mild anxiety Last Admin: 12/21/24 18:25 Dose: 25 mg Ibuprofen (Ibuprofen 600 Mg Tablet) 600 mg PO Q6H PRN PRN Reason: Pain, Mild (Pain Scale 1-3) Levothyroxine Sodium (Levothyroxine Sodium 50 Mcg Tablet) 50 mcg PO DAILY@0600 [facility] Last Admin: 12/23/24 06:43 Dose: 50 mcg Magnesium Hydroxide (Milk Of Magnesia 30 Ml Oral.Susp) 30 ml PO DAILY PRN PRN Reason: Constipation Melatonin (Melatonin 3 Mg Tablet) 3 mg PO BEDTIME [facility] Last Admin: 12/22/24 20:41 Dose: 3 mg Metformin HCl (Metformin Hcl Er 500 Mg Tab.Er.24h) 500 mg PO DAILY [facility] Last Admin: 12/23/24 08:40 Dose: 500 mg Naloxone HCl (Naloxone Hcl Nasal 4 Mg [place]) 4 mg NOSTRILALT ONCE PRN PRN Reason: opiate od Nicotine Polacrilex (Nicotine Polacrilex 2 Mg Gum) 4 mg BUCCAL Q2H PRN PRN Reason: Nicotine Cravings Non-Formulary Medication (Strattera 40 Mg Daily) 40 mg PO DAILY [facility] Ondansetron HCl (Ondansetron Odt 4 Mg Tab.Rapdis) 4 mg TRANSLINGU Q8H PRN PRN Reason: Nausea and Vomiting Prazosin HCl (Prazosin Hcl 1 Mg Capsule) 2 mg PO BEDTIME [facility]; Protocol Last Admin: 12/22/24 20:40 Dose: 2 mg Prednisone (Prednisone 10 Mg Tablet) 50 mg PO DAILY [facility] Stop: 12/26/24 08:59 Last Admin: 12/23/24 08:40 Dose: 50 mg Risperidone (Risperidone 2 Mg Tablet) 2 mg PO BID [facility] Last Admin: 12/23/24 08:41 Dose: 2 mg Risperidone (Risperidone 0.5 Mg Tablet) 0.5 mg PO BID PRN PRN Reason: psychosis Last Admin: 12/22/24 20:47 Dose: 0.5 mg Trazodone HCl (Trazodone Hcl 50 Mg Tablet) 50 mg PO BEDTIME MRX1 PRN PRN Reason: Insomnia Last Admin: 12/22/24 20:47 Dose: 50 mg Allergies Allergies Allergy/AdvReac Type Severity Reaction Status Date / Time fish derived (fish) Allergy Rash Verified 11/14/23 18:26 haloperidol (From Haldol) Allergy Muscle Verified 11/14/23 18:26 cramps sulfamethoxazole (From Allergy Rash Verified 11/14/23 18:26 Bactrim) trimethoprim (From Bactrim) Allergy Rash Verified 11/14/23 18:26 Assessment & Plan Assessment & Plan (1) Psychosis: Status: Acute Code(s): F29 - Unspecified psychosis not due to a substance or known physiological condition (2) Cocaine use disorder: Status: Acute Code(s): F14.10 - Cocaine abuse, uncomplicated Plan 39 yo female, transfer from [facility] where she 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 Team attempted to meet with pt this a.m. She was very agitated and asks that this be done another day. Reports she has not slept in several days. She reports meds are incorrect and asks that we call [place] for reconciliation which was completed. Plan: Admit, CV, 15 minute checks Med rec completed 12/[address] Encourage milieu involvement Diagnostics as needed Collateral contacts Aftercare planning 12/23/24 Continues with labile agitation, poor historian, not wanting to participate in a care plan, however, is taking meds. Continue to re-establish regime with adjustments as needed Reason for continued inpatient stay Substantial Risk for: rapid decompensation Time Spent With Patient Time: Total time managing care of this patient today ____ minutes.
[2024-12-23] MEDS: Albuterol Sulfate 90 MCG 8 GM INHALER 2 PUFF INHALE (15:20)
[2024-12-23 20:00] VITALS: BP 171/92; PULSE 101; RESP 18; TEMP 36.6; O2SAT 96
[2024-12-23 20:13] VITALS: BP 171/92
[2024-12-23 21:16] VITALS: BP 171/92
[2024-12-24] MEDS: Fluticasone/Vilanterol 100/25 BLST.W.DEV 1 PUFF INHALE (09:32)
[2024-12-24 10:18] VITALS: BP 142/83; PULSE 90; RESP 18; TEMP 36.9; O2SAT 97
--- NOTE | 2024-12-24 11:17 | HO.PSYCHPN ---
Subjective Subjective Date of Service: 12/24/24 Reason For Visit: bipolar d/o Interim History: met with patient; discussed with team Patient shared that she is feeling better and wants to discharge. Reptile Farmer inquired why she has not engaged in treatment at all since coming to the unit to which patient says I haven't wanted talk to anyone, been really tired. She says her mom is really sick with bronchitis and pt wants to go home to care for her. Patient explains what led her to this admission and says that she was up for 6 days since smoking crack... She denies that she was ever suicidal and but that would coming to the hospital I said wanted to just so i could sleep for a little bit...i'm homeless... She reiterates she was not suicidal and has not been in the recent past. Patient acknowledges she struggles with both depression and anxiety and that she takes risperidone for voices which are now resolves since restarting medication. Patient started to demand that she be discharged immediately. Reptile Farmer tried to explain that this is all new information and that her primary team takes her initial report of being suicidal very seriously. Patient demanded discharge and angrily left the room refusing to engage further. Mental Status Exam Mental Status Exam Patient Appearance: Fatigued and Disheveled Patient Orientation: Person, Place and Situation Level of Consciousness: Drowsy (much of the day), Restless and Alert Patient Behavior: Poor Eye Contact Behavior Comments: Irritable, demanding when wanting something; otherwise isolative Mood Description: Labile and Angry Affect Description: Labile and Angry Patient Cognition Impaired: No Ability to Follow Directions: Poor Speech Pattern: Spontaneous Speech (Something of a lisp which he says is because she is tired) Hallucinations: Auditory (Patient says have now resolved) Thought Process: Goal Oriented Thought Content: positive for [place] (Wants discharge; worried about her mother) Abnormal Motor Activity Signs and Symptoms: Agitation (Periods of both psychomotor agitation and retardation) Judgement: Poor Judgement and Insight: Impaired Diagnostics Vital Signs (24Hr): Vital Signs - 24 hr 12/23/24 20:00 12/23/24 20:13 12/23/24 21:16 Temperature 98 F Pulse Rate 101 H Respiratory Rate 18 Blood Pressure 171/92 H 171/92 H 171/92 H Pulse Oximetry 96 Oxygen Delivery Method Room Air 12/24/24 10:18 Temperature 98.4 F Pulse Rate 90 Respiratory Rate 18 Blood Pressure 142/83 H Pulse Oximetry 97 Oxygen Delivery Method Room Air BMI result Body Mass Index 36.8 Medications Medications Current Medications Acetaminophen (Acetaminophen 325 Mg Tablet) 650 mg PO Q6H PRN PRN Reason: Headache/Pain, Scale 1-10 Last Admin: 12/23/24 18:17 Dose: 650 mg Al Hydroxide/Mg Hydroxide (Magnesium Hydrox/Alum Hydrox 30 Ml Oral.Susp) 30 ml PO Q6H PRN PRN Reason: Heartburn/Nausea Albuterol Sulfate (Albuterol Sulfate 90 Mcg 8 Gm Inhaler) 2 puff INHALE Q4H PRN PRN Reason: Wheezing Last Admin: 12/23/24 15:20 Dose: 2 puff Benztropine Mesylate (Benztropine Mesylate 1 Mg Tablet) 1 mg PO BID [facility] Last Admin: 12/24/24 09:33 Dose: 1 mg Clonidine HCl (Clonidine Hcl 0.1 Mg Tablet) 0.1 mg PO BID [facility]; Protocol Last Admin: 12/24/24 09:32 Dose: 0.1 mg Diphenhydramine HCl (Diphenhydramine Hcl 25 Mg Capsule) 50 mg PO Q4H PRN PRN Reason: agitation, anxiety Fluticasone/Vilanterol (Fluticasone/Vilanterol 100/25 Blst.W.Dev) 1 puff INHALE RDAILY [facility] Last Admin: 12/24/24 09:32 Dose: 1 puff Guaifenesin (Guaifenesin 100 Mg/5 Ml 5 Ml Liquid) 5 ml PO Q6H PRN PRN Reason: Cough Hydroxyzine HCl (Hydroxyzine Hcl 25 Mg Tablet) 25 mg PO Q6H PRN PRN Reason: mild anxiety Last Admin: 12/21/24 18:25 Dose: 25 mg Ibuprofen (Ibuprofen 600 Mg Tablet) 600 mg PO Q6H PRN PRN Reason: Pain, Mild (Pain Scale 1-3) Levothyroxine Sodium (Levothyroxine Sodium 50 Mcg Tablet) 50 mcg PO DAILY@0600 [facility] Last Admin: 12/24/24 06:17 Dose: 50 mcg Magnesium Hydroxide (Milk Of Magnesia 30 Ml Oral.Susp) 30 ml PO DAILY PRN PRN Reason: Constipation Melatonin (Melatonin 3 Mg Tablet) 3 mg PO BEDTIME [facility] Last Admin: 12/23/24 20:12 Dose: 3 mg Metformin HCl (Metformin Hcl Er 500 Mg Tab.Er.24h) 500 mg PO DAILY [facility] Last Admin: 12/24/24 09:33 Dose: 500 mg Naloxone HCl (Naloxone Hcl Nasal 4 Mg [place]) 4 mg NOSTRILALT ONCE PRN PRN Reason: opiate od Nicotine Polacrilex (Nicotine Polacrilex 2 Mg Gum) 4 mg BUCCAL Q2H PRN PRN Reason: Nicotine Cravings Non-Formulary Medication (Strattera 40 Mg Daily) 40 mg PO DAILY [facility] Olanzapine (Olanzapine 5 Mg Tablet) 5 mg PO Q4H PRN PRN Reason: severe agitation,psychosis Last Admin: 12/24/24 09:36 Dose: 5 mg Ondansetron HCl (Ondansetron Odt 4 Mg Tab.Rapdis) 4 mg TRANSLINGU Q8H PRN PRN Reason: Nausea and Vomiting Prazosin HCl (Prazosin Hcl 1 Mg Capsule) 2 mg PO BEDTIME [facility]; Protocol Last Admin: 12/23/24 20:13 Dose: 2 mg Prednisone (Prednisone 10 Mg Tablet) 50 mg PO DAILY [facility] Stop: 12/26/24 08:59 Last Admin: 12/24/24 09:32 Dose: 50 mg Risperidone (Risperidone 2 Mg Tablet) 2 mg PO BID [facility] Last Admin: 12/24/24 09:32 Dose: 2 mg Risperidone (Risperidone 0.5 Mg Tablet) 0.5 mg PO BID PRN PRN Reason: psychosis Last Admin: 12/23/24 15:20 Dose: 0.5 mg Trazodone HCl (Trazodone Hcl 50 Mg Tablet) 50 mg PO BEDTIME MRX1 PRN PRN Reason: Insomnia Last Admin: 12/23/24 20:16 Dose: 50 mg Allergies Allergies Allergy/AdvReac Type Severity Reaction Status Date / Time fish derived (fish) Allergy Rash Verified 11/14/23 18:26 haloperidol (From Haldol) Allergy Muscle Verified 11/14/23 18:26 cramps sulfamethoxazole (From Allergy Rash Verified 11/14/23 18:26 Bactrim) trimethoprim (From Bactrim) Allergy Rash Verified 11/14/23 18:26 Assessment & Plan Assessment & Plan (1) Psychosis: Status: Acute Code(s): F29 - Unspecified psychosis not due to a substance or known physiological condition (2) Cocaine use disorder: Status: Acute Code(s): F14.10 - Cocaine abuse, uncomplicated Plan 39 yo female, transfer from [facility] where she presented with [employer] for asthma 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 Team attempted to meet with pt this a.m. She was very agitated and asks that this be done another day. Reports she has not slept in several days. She reports meds are incorrect and asks that we call Deyvi Colin for reconciliation which was completed. Plan: Admit, CV, 15 minute checks Med rec completed 12/[address] Encourage milieu involvement Diagnostics as needed Collateral contacts Aftercare planning Hospital course: 12/23/24 Continues with labile agitation, poor historian, not wanting to participate in a care plan, however, is taking meds. Continue to re-establish regime with adjustments as needed 12/24 Patient shared that she is feeling better and wants to discharge. Reptile Farmer inquired why she has not engaged in treatment at all since coming to the unit to which patient says I haven't wanted talk to anyone, been really tired. She says her mom is really sick with bronchitis and pt wants to go home to care for her. Patient explains what led her to this admission and says that she was up for 6 days since smoking crack... She denies that she was ever suicidal and but that would coming to the hospital I said wanted to just so i could sleep for a little bit...i'm homeless... She reiterates she was not suicidal and has not been in the recent past. Patient acknowledges she struggles with both depression and anxiety and that she takes risperidone for voices which are now resolves since restarting medication. Patient started to demand that she be discharged immediately. Reptile Farmer tried to explain that this is all new information and that her primary team takes her initial report of being suicidal very seriously. Patient demanded discharge and angrily left the room refusing to engage further. Impression: It is not clear whether patient fabricated SI to get a bed or whether she just saying so now so she can discharge. Patient has refused to engage in treatment or discussions and at this time it is not possible for food writer to discern. For now will Continue treatment regimen and Defer dispo planning to primary team Patient educated on: diagnosis, medication risk/benefits and substance abuse Informed Consent: understands Reason for continued inpatient stay Substantial Risk for: rapid decompensation Time Spent With Patient Time: Total time managing care of this patient today ____ minutes.
[2024-12-24] MEDS: Albuterol Sulfate 90 MCG 8 GM INHALER 2 PUFF INHALE (17:42)
[2024-12-24 20:00] VITALS: BP 145/90; PULSE 97; RESP 18; TEMP 36.4; O2SAT 100
[2024-12-24 21:41] VITALS: BP 145/90
[2024-12-24 21:42] VITALS: BP 145/90
[2024-12-25 07:32] VITALS: BP 166/70
[2024-12-25 08:00] VITALS: BP 154/94; PULSE 76; RESP 18; TEMP 36.4; O2SAT 94
[2024-12-25] MEDS: Fluticasone/Vilanterol 100/25 BLST.W.DEV 1 PUFF INHALE (08:00)
[2024-12-25 08:47] LABS: Creatinine Clr Calc Pharmacy 131.8; Estimated Glomerular Filt Rate > 60
[2024-12-25] MEDS: Albuterol Sulfate 90 MCG 8 GM INHALER 2 PUFF INHALE ×2 (14:51→21:45)
[2024-12-25] MEDS: Sodium Chloride 0.65 % Nasal 44 ML SPRBTL 1 SPRAY NOSTRIL-B (15:51)
--- NOTE | 2024-12-25 16:03 | HO.PSYCHPN ---
Subjective Subjective Date of Service: 12/25/24 Reason For Visit: bipolar d/o Interim History: Met with patient; discussed with team Patient reports that she is feeling better. AH remain gone. Patient says she wants to go home but also says she needs psychiatric providers agrees to remain on the unit to get help with this. Patient currently does not want help with substance abuse treatment, and plans to continue using crack cocaine. Patient privately asked the nurse for test for genital herpes Mental Status Exam Mental Status Exam Patient Appearance: Fatigued and Disheveled Patient Orientation: Person, Place, Time and Situation Level of Consciousness: Drowsy (much of the day), Restless and Alert Patient Behavior: Poor Eye Contact Behavior Comments: Mostly isolative but more cooperative and willing to engage some Mood Description: Calm and Withdrawn ( Patient says she is good ) Affect Description: Withdrawn Patient Cognition Impaired: No Ability to Follow Directions: Fair Speech Pattern: Spontaneous Speech (Something of a lisp which she says is because she is tired) Hallucinations: Auditory (now resolved) Thought Process: Goal Oriented Thought Content: positive for [place] (Wants discharge; worried about her mother) Abnormal Motor Activity Signs and Symptoms: Psychomotor Retardation Judgement: Poor Judgement and Insight: Impaired but improved Diagnostics Vital Signs (24Hr): Vital Signs - 24 hr 12/24/24 20:00 12/24/24 21:41 12/24/24 21:42 Temperature 97.5 F Pulse Rate 97 Respiratory Rate 18 Blood Pressure 145/90 H 145/90 H 145/90 H Pulse Oximetry 100 Oxygen Delivery Method Room Air 12/25/24 07:32 12/25/24 08:00 Temperature 97.5 F Pulse Rate 76 Respiratory Rate 18 Blood Pressure 166/70 H 154/94 H Pulse Oximetry 94 Oxygen Delivery Method Room Air BMI result Body Mass Index 36.8 Labs 12/25/24 08:08 Labs: Laboratory Results - last 48 hr 12/25/24 08:08 Creatinine 0.72 Estim Creat Clear Calc 131.8 Estimated GFR > 60 Medications Medications Current Medications Acetaminophen (Acetaminophen 325 Mg Tablet) 650 mg PO Q6H PRN PRN Reason: Headache/Pain, Scale 1-10 Last Admin: 12/23/24 18:17 Dose: 650 mg Al Hydroxide/Mg Hydroxide (Magnesium Hydrox/Alum Hydrox 30 Ml Oral.Susp) 30 ml PO Q6H PRN PRN Reason: Heartburn/Nausea Albuterol Sulfate (Albuterol Sulfate 90 Mcg 8 Gm Inhaler) 2 puff INHALE Q4H PRN PRN Reason: Wheezing Last Admin: 12/25/24 14:51 Dose: 2 puff Benztropine Mesylate (Benztropine Mesylate 1 Mg Tablet) 1 mg PO BID [facility] Last Admin: 12/25/24 08:00 Dose: 1 mg Clonidine HCl (Clonidine Hcl 0.1 Mg Tablet) 0.1 mg PO BID [facility]; Protocol Last Admin: 12/25/24 08:00 Dose: 0.1 mg Diphenhydramine HCl (Diphenhydramine Hcl 25 Mg Capsule) 50 mg PO Q4H PRN PRN Reason: agitation, anxiety Last Admin: 12/25/24 13:35 Dose: 50 mg Fluticasone/Vilanterol (Fluticasone/Vilanterol 100/25 Blst.W.Dev) 1 puff INHALE RDAILY [facility] Last Admin: 12/25/24 08:00 Dose: 1 puff Guaifenesin (Guaifenesin 100 Mg/5 Ml 5 Ml Liquid) 5 ml PO Q6H PRN PRN Reason: Cough Hydroxyzine HCl (Hydroxyzine Hcl 25 Mg Tablet) 25 mg PO Q6H PRN PRN Reason: mild anxiety Last Admin: 12/25/24 13:34 Dose: 25 mg Ibuprofen (Ibuprofen 600 Mg Tablet) 600 mg PO Q6H PRN PRN Reason: Pain, Mild (Pain Scale 1-3) Levothyroxine Sodium (Levothyroxine Sodium 50 Mcg Tablet) 50 mcg PO DAILY@0600 [facility] Last Admin: 12/25/24 06:22 Dose: 50 mcg Magnesium Hydroxide (Milk Of Magnesia 30 Ml Oral.Susp) 30 ml PO DAILY PRN PRN Reason: Constipation Melatonin (Melatonin 3 Mg Tablet) 3 mg PO BEDTIME [facility] Last Admin: 12/24/24 21:41 Dose: 3 mg Metformin HCl (Metformin Hcl Er 500 Mg Tab.Er.24h) 500 mg PO DAILY [facility] Last Admin: 12/25/24 08:00 Dose: 500 mg Naloxone HCl (Naloxone Hcl Nasal 4 Mg [place]) 4 mg NOSTRILALT ONCE PRN PRN Reason: opiate od Nicotine Polacrilex (Nicotine Polacrilex 2 Mg Gum) 4 mg BUCCAL Q2H PRN PRN Reason: Nicotine Cravings Non-Formulary Medication (Strattera 40 Mg Daily) 40 mg PO DAILY [facility] Olanzapine (Olanzapine 5 Mg Tablet) 5 mg PO Q4H PRN PRN Reason: severe agitation,psychosis Last Admin: 12/24/24 17:44 Dose: 5 mg Ondansetron HCl (Ondansetron Odt 4 Mg Tab.Rapdis) 4 mg TRANSLINGU Q8H PRN PRN Reason: Nausea and Vomiting Prazosin HCl (Prazosin Hcl 1 Mg Capsule) 2 mg PO BEDTIME [facility]; Protocol Last Admin: 12/24/24 21:41 Dose: 2 mg Prednisone (Prednisone 10 Mg Tablet) 50 mg PO DAILY [facility] Stop: 12/26/24 08:59 Last Admin: 12/25/24 08:00 Dose: 50 mg Risperidone (Risperidone 2 Mg Tablet) 2 mg PO BID [facility] Last Admin: 12/25/24 08:00 Dose: 2 mg Risperidone (Risperidone 0.5 Mg Tablet) 0.5 mg PO BID PRN PRN Reason: psychosis Last Admin: 12/23/24 15:20 Dose: 0.5 mg Sodium Chloride (Sodium Chloride 0.65 % Nasal 44 Ml Sprbtl) 1 spray NOSTRIL-B Q1H PRN PRN Reason: dry nares Last Admin: 12/25/24 15:51 Dose: 1 spray Trazodone HCl (Trazodone Hcl 50 Mg Tablet) 50 mg PO BEDTIME MRX1 PRN PRN Reason: Insomnia Last Admin: 12/23/24 20:16 Dose: 50 mg Allergies Allergies Allergy/AdvReac Type Severity Reaction Status Date / Time fish derived (fish) Allergy Rash Verified 11/14/23 18:26 haloperidol (From Haldol) Allergy Muscle Verified 11/14/23 18:26 cramps sulfamethoxazole (From Allergy Rash Verified 11/14/23 18:26 Bactrim) trimethoprim (From Bactrim) Allergy Rash Verified 11/14/23 18:26 Assessment & Plan Assessment & Plan (1) Psychosis: Status: Acute Code(s): F29 - Unspecified psychosis not due to a substance or known physiological condition (2) Cocaine use disorder: Status: Acute Code(s): F14.10 - Cocaine abuse, uncomplicated Plan 39 yo female, transfer from [facility] where she presented with [facility] for asthma 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 Team attempted to meet with pt this a.m. She was very agitated and asks that this be done another day. Reports she has not slept in several days. She reports meds are incorrect and asks that we call Deyvi Colin for reconciliation which was completed. Hospital course: 12/23/24 Continues with labile agitation, poor historian, not wanting to participate in a care plan, however, is taking meds. Continue to re-establish regime with adjustments as needed 12/24 Patient shared that she is feeling better and wants to discharge. Leather Etcher inquired why she has not engaged in treatment at all since coming to the unit to which patient says I haven't wanted talk to anyone, been really tired. She says her mom is really sick with bronchitis and pt wants to go home to care for her. Patient explains what led her to this admission and says that she was up for 6 days since smoking crack... She denies that she was ever suicidal and but that would coming to the hospital I said wanted to just so i could sleep for a little bit...i'm homeless... She reiterates she was not suicidal and has not been in the recent past. Patient acknowledges she struggles with both depression and anxiety and that she takes risperidone for voices which are now resolves since restarting medication. Patient started to demand that she be discharged immediately. Leather Etcher tried to explain that this is all new information and that her primary team takes her initial report of being suicidal very seriously. Patient demanded discharge and angrily left the room refusing to engage further. Impression: It is not clear whether patient fabricated SI to get a bed or whether she just saying so now so she can discharge. Patient has refused to engage in treatment or discussions and at this time it is not possible for chief underwriter to discern. For now will Continue treatment regimen and Defer dispo planning to primary team 12/25 Patient reports that she is feeling better. AH remain gone. Patient says she wants to go home but also says she needs psychiatric providers agrees to remain on the unit to get help with this. Patient currently does not want help with substance abuse treatment, and plans to continue using crack cocaine. Patient privately asked the nurse for test for genital herpes -continue current treatment plan -will test for STDs Plan: Admit, CV, 15 minute checks Med rec completed 12/[address] Encourage milieu involvement Diagnostics as needed Collateral contacts Aftercare planning Patient educated on: diagnosis, medication risk/benefits and substance abuse Informed Consent: understands Reason for continued inpatient stay Substantial Risk for: rapid decompensation Time Spent With Patient Time: Total time managing care of this patient today ____ minutes.
[2024-12-25 16:43] LABS: CT PCR Urine NOT DETECTED (Not Detect.); NG PCR Urine NOT DETECTED (Not Detect.)
[2024-12-25 20:00] VITALS: BP 135/78; PULSE 84; RESP 20; TEMP 2.6; TEMP 36.7; O2SAT 98
[2024-12-25 20:43] VITALS: BP 135/78
[2024-12-25 20:46] VITALS: BP 135/78
[2024-12-26 03:44] LABS: Syphilis Screen Nonreactive (Nonreactive)
[2024-12-26 08:00] VITALS: BP 132/74; PULSE 89; RESP 18; TEMP 36.8; O2SAT 97
[2024-12-26 08:26] VITALS: BP 132/74
[2024-12-26] MEDS: Fluticasone/Vilanterol 100/25 BLST.W.DEV 1 PUFF INHALE (08:27)
[2024-12-26] MEDS: Albuterol Sulfate 90 MCG 8 GM INHALER 2 PUFF INHALE (09:19)
--- NOTE | 2024-12-26 12:44 | P.PNPSI_ITS ---
Subjective Subjective Date of Service: 12/26/24 Reason For Visit: bipolar d/o Interim History: Patient up and out of her room. Patient showered, dressed and reports that she is in a good mood. No AVH. Says she would like to discharge Thursday if possible. Patient says she needs to get her belongings which are currently in a tent. She then says she wants to find a program for substance abuse but very much wants to find it on her own and does not want any substance abuse/treatment help from team. Mental Status Exam Mental Status Exam Narrative: Pt is alert and oriented; behavior is cooperative, friendly and calm; patient is not in distress; dressed in casual attire with unkempt hair but adequate hygiene; mood is described as good and affect congruent; eye contact appropriate; Speech is normal rate, volume and prosody and not pressured; no psychomotor agitation/retardation present; thought process is organized and goal directed; Thought content is on tx; otherwise pertinent to relevant topics and without any delusional content, paranoid ideations or grandiosity; denies any SI/HI. Denies AVH and there is no evidence of perceptual disturbance. Patients insight and judgment appear intact. Diagnostics Vital Signs (24Hr): Vital Signs - 24 hr 12/25/24 20:00 12/25/24 20:43 12/25/24 20:46 Temperature 36.7 F L Pulse Rate 84 Respiratory Rate 20 Blood Pressure 135/78 135/78 135/78 Pulse Oximetry 98 Oxygen Delivery Method Room Air 12/26/24 08:00 12/26/24 08:26 Temperature 98.2 F Pulse Rate 89 Respiratory Rate 18 Blood Pressure 132/74 132/74 Pulse Oximetry 97 Oxygen Delivery Method Room Air BMI result Body Mass Index 36.8 Labs 12/25/24 08:08 Labs: Laboratory Results - last 48 hr 12/25/24 12/25/24 12/25/24 08:08 14:52 15:24 Creatinine 0.72 Estim Creat Clear Calc 131.8 Estimated GFR > 60 Ur N gonorrhoeae DNA (PCR) NOT DETECTED T.pallidum Ab (EIA) Nonreactive Ur Chlamydia DNA (PCR) NOT DETECTED Medications Medications Current Medications Acetaminophen (Acetaminophen 325 Mg Tablet) 650 mg PO Q6H PRN PRN Reason: Headache/Pain, Scale 1-10 Last Admin: 12/23/24 18:17 Dose: 650 mg Al Hydroxide/Mg Hydroxide (Magnesium Hydrox/Alum Hydrox 30 Ml Oral.Susp) 30 ml PO Q6H PRN PRN Reason: Heartburn/Nausea Albuterol Sulfate (Albuterol Sulfate 90 Mcg 8 Gm Inhaler) 2 puff INHALE Q4H PRN PRN Reason: Wheezing Last Admin: 12/26/24 09:19 Dose: 2 puff Benztropine Mesylate (Benztropine Mesylate 1 Mg Tablet) 1 mg PO BID COUNT [facility]CLUDES [facility] Last Admin: 12/26/24 08:27 Dose: 1 mg Clonidine HCl (Clonidine Hcl 0.1 Mg Tablet) 0.1 mg PO BID COUNT [facility]CLUDES [facility]; Protocol Last Admin: 12/26/24 08:26 Dose: 0.1 mg Diphenhydramine HCl (Diphenhydramine Hcl 25 Mg Capsule) 50 mg PO Q4H PRN PRN Reason: agitation, anxiety Last Admin: 12/26/24 11:31 Dose: 50 mg Fluticasone/Vilanterol (Fluticasone/Vilanterol 100/25 Blst.W.Dev) 1 puff INHALE RDAILY COUNT INCLUDES [facility] Last Admin: 12/26/24 08:27 Dose: 1 puff Guaifenesin (Guaifenesin 100 Mg/5 Ml 5 Ml Liquid) 5 ml PO Q6H PRN PRN Reason: Cough Hydroxyzine HCl (Hydroxyzine Hcl 25 Mg Tablet) 25 mg PO Q6H PRN PRN Reason: mild anxiety Last Admin: 12/26/24 10:19 Dose: 25 mg Ibuprofen (Ibuprofen 600 Mg Tablet) 600 mg PO Q6H PRN PRN Reason: Pain, Mild (Pain Scale 1-3) Levothyroxine Sodium (Levothyroxine Sodium 50 Mcg Tablet) 50 mcg PO DAILY@0600 [facility]CLUDES [facility] Last Admin: 12/26/24 06:13 Dose: 50 mcg Magnesium Hydroxide (Milk Of Magnesia 30 Ml Oral.Susp) 30 ml PO DAILY PRN PRN Reason: Constipation Melatonin (Melatonin 3 Mg Tablet) 3 mg PO BEDTIME [facility]CLUDES [facility] Last Admin: 12/25/24 20:44 Dose: 3 mg Metformin HCl (Metformin Hcl Er 500 Mg Tab.Er.24h) 500 mg PO DAILY COUNT INCLUDES [facility] Last Admin: 12/26/24 08:27 Dose: 500 mg Naloxone HCl (Naloxone Hcl Nasal 4 Mg [place]) 4 mg NOSTRILALT ONCE PRN PRN Reason: opiate od Nicotine Polacrilex (Nicotine Polacrilex 2 Mg Gum) 4 mg BUCCAL Q2H PRN PRN Reason: Nicotine Cravings Olanzapine (Olanzapine 5 Mg Tablet) 5 mg PO Q4H PRN PRN Reason: severe agitation,psychosis Last Admin: 12/24/24 17:44 Dose: 5 mg Ondansetron HCl (Ondansetron Odt 4 Mg Tab.Rapdis) 4 mg TRANSLINGU Q8H PRN PRN Reason: Nausea and Vomiting Prazosin HCl (Prazosin Hcl 1 Mg Capsule) 2 mg PO BEDTIME [facility]; Protocol Last Admin: 12/25/24 20:43 Dose: 2 mg Risperidone (Risperidone 2 Mg Tablet) 2 mg PO BID [facility] Last Admin: 12/26/24 08:26 Dose: 2 mg Risperidone (Risperidone 0.5 Mg Tablet) 0.5 mg PO BID PRN PRN Reason: psychosis Last Admin: 12/26/24 10:19 Dose: 0.5 mg Sodium Chloride (Sodium Chloride 0.65 % Nasal 44 Ml Sprbtl) 1 spray NOSTRIL-B Q1H PRN PRN Reason: dry nares Last Admin: 12/25/24 15:51 Dose: 1 spray Trazodone HCl (Trazodone Hcl 50 Mg Tablet) 50 mg PO BEDTIME MRX1 PRN PRN Reason: Insomnia Last Admin: 12/25/24 20:46 Dose: 50 mg Allergies Allergies Allergy/AdvReac Type Severity Reaction Status Date / Time fish derived (fish) Allergy Rash Verified 11/14/23 18:26 haloperidol (From Haldol) Allergy Muscle Verified 11/14/23 18:26 cramps sulfamethoxazole (From Allergy Rash Verified 11/14/23 18:26 Bactrim) trimethoprim (From Bactrim) Allergy Rash Verified 11/14/23 18:26 Assessment & Plan Assessment & Plan (1) Psychosis: Status: Acute Code(s): F29 - Unspecified psychosis not due to a substance or known physiological condition (2) Cocaine use disorder: Status: Acute Code(s): F14.10 - Cocaine abuse, uncomplicated Plan 39 yo female, transfer from [facility] where she presented with [employer] for asthma 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 Team attempted to meet with pt this a.m. She was very agitated and asks that this be done another day. Reports she has not slept in several days. She reports meds are incorrect and asks that we call Deyvi Colin for reconciliation which was completed. Hospital course: 12/23/24 Continues with labile agitation, poor historian, not wanting to participate in a care plan, however, is taking meds. Continue to re-establish regime with adjustments as needed 12/24 Patient shared that she is feeling better and wants to discharge. Equipment Engineering Technician inquired why she has not engaged in treatment at all since coming to the unit to which patient says I haven't wanted talk to anyone, been really tired. She says her mom is really sick with bronchitis and pt wants to go home to care for her. Patient explains what led her to this admission and says that she was up for 6 days since smoking crack... She denies that she was ever suicidal and but that would coming to the hospital I said wanted to just so i could sleep for a little bit...i'm homeless... She reiterates she was not suicidal and has not been in the recent past. Patient acknowledges she struggles with both depression and anxiety and that she takes risperidone for voices which are now resolves since restarting medication. Patient started to demand that she be discharged immediately. Equipment Engineering Technician tried to explain that this is all new information and that her primary team takes her initial report of being suicidal very seriously. Patient demanded discharge and angrily left the room refusing to engage further. Impression: It is not clear whether patient fabricated SI to get a bed or whether she just saying so now so she can discharge. Patient has refused to engage in treatment or discussions and at this time it is not possible for commercial loan underwriter to discern. For now will Continue treatment regimen and Defer dispo planning to primary team 12/25 Patient reports that she is feeling better. AH remain gone. Patient says she wants to go home but also says she needs psychiatric providers agrees to remain on the unit to get help with this. Patient currently does not want help with substance abuse treatment, and plans to continue using crack cocaine. Patient privately asked the nurse for test for genital herpes -continue current treatment plan -will test for STDs 12/26 Patient showered, dressed and reports that she is in a good mood. No AVH. Says she would like to discharge Thursday if possible. Patient says she needs to get her belongings which are currently in a tent. She then says she wants to find a program for substance abuse but very much wants to find it on her own and does not want any substance abuse/treatment help from team (properly to a nurse patient said she intends to continue using crack cocaine on discharge) -HSV tests pending Plan: Admit, CV, 15 minute checks Med rec completed 12/[address] Encourage milieu involvement Diagnostics as needed Collateral contacts Aftercare planning Patient educated on: diagnosis, medication risk/benefits and substance abuse Informed Consent: understands Reason for continued inpatient stay Substantial Risk for: stable for discharge Time Spent With Patient Time: Total time managing care of this patient today ____ minutes.
[2024-12-26] MEDS: Sodium Chloride 0.65 % Nasal 44 ML SPRBTL 1 SPRAY NOSTRIL-B (14:54)
[2024-12-26 20:00] VITALS: BP 142/77; PULSE 100; RESP 18; TEMP 37.2; O2SAT 95
[2024-12-26] MEDS: guaiFENesin 100 MG/5 ML 5 ML LIQUID PO (20:50)
[2024-12-27 07:50] VITALS: BP 155/94; PULSE 110; TEMP 36.3; O2SAT 98
[2024-12-27] MEDS: Fluticasone/Vilanterol 100/25 BLST.W.DEV 1 PUFF INHALE (08:27)
[2024-12-27] MEDS: Albuterol Sulfate 90 MCG 8 GM INHALER 2 PUFF INHALE ×2 (08:28→13:00)
[2024-12-27] MEDS: Sodium Chloride 0.65 % Nasal 44 ML SPRBTL 1 SPRAY NOSTRIL-B (09:34)
--- NOTE | 2024-12-27 11:37 | HO.PSYCHPN ---
Subjective Subjective Date of Service: 12/27/24 Reason For Visit: bipolar d/o Subjective Notes: 3 Day Healthcare Proxy: No Guardianship: No Medical Problems Affecting Mental Status: No Interim History: Three day notice to on 12/28. Continues to decline assist from team for treatment suggestions, stating she would prefer to make the choice on her own. Denies SI,HI,AH, VH Prepared for discharge Medication Compliance: Yes Side effects from medications: No Attending Groups: Intermittent Review of Systems Acute medical concerns: No Medical Review of Systems: unchanged Review of Systems Review of Systems Denies today Mental Status Exam Mental Status Exam Patient Appearance: Appropriate Patient Orientation: Person, Place, Time and Situation Level of Consciousness: Alert Patient Behavior: Talkative Mood Description: Constricted Affect Description: Constricted Ability to Follow Directions: Good Speech Pattern: Spontaneous Speech Memory Description: Intact Hallucinations: None Delusions: Not Present Thought Process: Intact and Goal Oriented Thought Content: positive for Intact and positive for Goal Oriented Judgement: Good Diagnostics Vital Signs (24Hr): Vital Signs - 24 hr 12/26/24 20:00 12/27/24 07:50 Temperature 99 F 97.3 F Pulse Rate 100 110 H Respiratory Rate 18 Blood Pressure 142/77 H 155/94 H Pulse Oximetry 95 98 Oxygen Delivery Method Room Air Room Air BMI result Body Mass Index 36.8 Labs 12/25/24 08:08 Labs: Laboratory Results - last 48 hr 12/25/24 12/25/24 14:52 15:24 Ur N gonorrhoeae DNA (PCR) NOT DETECTED T.pallidum Ab (EIA) Nonreactive Ur Chlamydia DNA (PCR) NOT DETECTED HSV I IgG Ab 42.60 H HSV II IgG 11.90 H Medications Medications Current Medications Acetaminophen (Acetaminophen 325 Mg Tablet) 650 mg PO Q6H PRN PRN Reason: Headache/Pain, Scale 1-10 Last Admin: 12/23/24 18:17 Dose: 650 mg Al Hydroxide/Mg Hydroxide (Magnesium Hydrox/Alum Hydrox 30 Ml Oral.Susp) 30 ml PO Q6H PRN PRN Reason: Heartburn/Nausea Albuterol Sulfate (Albuterol Sulfate 90 Mcg 8 Gm Inhaler) 2 puff INHALE Q4H PRN PRN Reason: Wheezing Last Admin: 12/27/24 08:28 Dose: 2 puff Benztropine Mesylate (Benztropine Mesylate 1 Mg Tablet) 1 mg PO BID [facility] Last Admin: 12/27/24 08:26 Dose: 1 mg Clonidine HCl (Clonidine Hcl 0.1 Mg Tablet) 0.1 mg PO BID [facility]; Protocol Last Admin: 12/27/24 08:26 Dose: 0.1 mg Diphenhydramine HCl (Diphenhydramine Hcl 25 Mg Capsule) 50 mg PO Q4H PRN PRN Reason: agitation, anxiety Last Admin: 12/27/24 09:37 Dose: 50 mg Fluticasone/Vilanterol (Fluticasone/Vilanterol 100/25 Blst.W.Dev) 1 puff INHALE RDAILY [facility] Last Admin: 12/27/24 08:27 Dose: 1 puff Guaifenesin (Guaifenesin 100 Mg/5 Ml 5 Ml Liquid) 5 ml PO Q6H PRN PRN Reason: Cough Last Admin: 12/26/24 20:50 Dose: 5 ml Hydroxyzine HCl (Hydroxyzine Hcl 25 Mg Tablet) 25 mg PO Q6H PRN PRN Reason: mild anxiety Last Admin: 12/26/24 10:19 Dose: 25 mg Ibuprofen (Ibuprofen 600 Mg Tablet) 600 mg PO Q6H PRN PRN Reason: Pain, Mild (Pain Scale 1-3) Levothyroxine Sodium (Levothyroxine Sodium 50 Mcg Tablet) 50 mcg PO DAILY@0600 [facility] Last Admin: 12/27/24 06:39 Dose: 50 mcg Magnesium Hydroxide (Milk Of Magnesia 30 Ml Oral.Susp) 30 ml PO DAILY PRN PRN Reason: Constipation Melatonin (Melatonin 3 Mg Tablet) 3 mg PO BEDTIME [facility] Last Admin: 12/26/24 20:18 Dose: 3 mg Metformin HCl (Metformin Hcl Er 500 Mg Tab.Er.24h) 500 mg PO DAILY [facility] Last Admin: 12/27/24 08:27 Dose: 500 mg Naloxone HCl (Naloxone Hcl Nasal 4 Mg [place]) 4 mg NOSTRILALT ONCE PRN PRN Reason: opiate od Nicotine Polacrilex (Nicotine Polacrilex 2 Mg Gum) 4 mg BUCCAL Q2H PRN PRN Reason: Nicotine Cravings Olanzapine (Olanzapine 5 Mg Tablet) 5 mg PO Q4H PRN PRN Reason: severe agitation,psychosis Last Admin: 12/27/24 09:37 Dose: 5 mg Ondansetron HCl (Ondansetron Odt 4 Mg Tab.Rapdis) 4 mg TRANSLINGU Q8H PRN PRN Reason: Nausea and Vomiting Prazosin HCl (Prazosin Hcl 1 Mg Capsule) 2 mg PO BEDTIME [facility]; Protocol Last Admin: 12/26/24 20:18 Dose: 2 mg Risperidone (Risperidone 2 Mg Tablet) 2 mg PO BID [facility] Last Admin: 12/27/24 08:27 Dose: 2 mg Risperidone (Risperidone 0.5 Mg Tablet) 0.5 mg PO BID PRN PRN Reason: psychosis Last Admin: 12/27/24 09:37 Dose: 0.5 mg Sodium Chloride (Sodium Chloride 0.65 % Nasal 44 Ml Sprbtl) 1 spray NOSTRIL-B Q1H PRN PRN Reason: dry nares Last Admin: 12/27/24 09:34 Dose: 1 spray Trazodone HCl (Trazodone Hcl 50 Mg Tablet) 50 mg PO BEDTIME MRX1 PRN PRN Reason: Insomnia Last Admin: 12/26/24 20:24 Dose: 50 mg Allergies Allergies Allergy/AdvReac Type Severity Reaction Status Date / Time fish derived (fish) Allergy Rash Verified 11/14/23 18:26 haloperidol (From Haldol) Allergy Muscle Verified 11/14/23 18:26 cramps sulfamethoxazole (From Allergy Rash Verified 11/14/23 18:26 Bactrim) trimethoprim (From Bactrim) Allergy Rash Verified 11/14/23 18:26 Assessment & Plan Assessment & Plan (1) Psychosis: Status: Acute Code(s): F29 - Unspecified psychosis not due to a substance or known physiological condition (2) Cocaine use disorder: Status: Acute Code(s): F14.10 - Cocaine abuse, uncomplicated Plan 39 yo female, transfer from [facility] where she presented with [employer] for asthma 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 Team attempted to meet with pt this a.m. She was very agitated and asks that this be done another day. Reports she has not slept in several days. She reports meds are incorrect and asks that we call Deyvi Colin for reconciliation which was completed. Hospital course: 12/23/24 Continues with labile agitation, poor historian, not wanting to participate in a care plan, however, is taking meds. Continue to re-establish regime with adjustments as needed 12/24 Patient shared that she is feeling better and wants to discharge. Montessori Program Director inquired why she has not engaged in treatment at all since coming to the unit to which patient says I haven't wanted talk to anyone, been really tired. She says her mom is really sick with bronchitis and pt wants to go home to care for her. Patient explains what led her to this admission and says that she was up for 6 days since smoking crack... She denies that she was ever suicidal and but that would coming to the hospital I said wanted to just so i could sleep for a little bit...i'm homeless... She reiterates she was not suicidal and has not been in the recent past. Patient acknowledges she struggles with both depression and anxiety and that she takes risperidone for voices which are now resolves since restarting medication. Patient started to demand that she be discharged immediately. Montessori Program Director tried to explain that this is all new information and that her primary team takes her initial report of being suicidal very seriously. Patient demanded discharge and angrily left the room refusing to engage further. Impression: It is not clear whether patient fabricated SI to get a bed or whether she just saying so now so she can discharge. Patient has refused to engage in treatment or discussions and at this time it is not possible for com writer to discern. For now will Continue treatment regimen and Defer dispo planning to primary team 12/25 Patient reports that she is feeling better. AH remain gone. Patient says she wants to go home but also says she needs psychiatric providers agrees to remain on the unit to get help with this. Patient currently does not want help with substance abuse treatment, and plans to continue using crack cocaine. Patient privately asked the nurse for test for genital herpes -continue current treatment plan -will test for STDs 12/26 Patient showered, dressed and reports that she is in a good mood. No AVH. Says she would like to discharge Thursday if possible. Patient says she needs to get her belongings which are currently in a tent. She then says she wants to find a program for substance abuse but very much wants to find it on her own and does not want any substance abuse/treatment help from team (properly to a nurse patient said she intends to continue using crack cocaine on discharge) -HSV tests pending 12/27- DC 12/28 on three day notice Plan: Admit, CV, 15 minute checks Med rec completed 12/[address] Encourage milieu involvement Diagnostics as needed Collateral contacts Aftercare planning Reason for continued inpatient stay Substantial Risk for: stable for discharge Time Spent With Patient Time: Total time managing care of this patient today ____ minutes.
--- NOTE | 2024-12-27 16:28 | P.PNIM_ITS ---
Subjective Subjective Date of Service: 12/27/24 Interval History: Patient was seen and examined, follow up STI testing ordered by Psychiatry. she reports that she has an active lesion on her labia. 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 No swab was performed of the lesion. Patient reports that she had sexual contact with a male who was positive for genital herpes. Educated patient regarding need to use protection during active outbreaks, educated regarding signs and symptoms and when to use antiviral medications Review of Systems Denies any shortness of breath, dizziness, lightheadedness, headaches, reports positive tenderness in her groin. Positive blister on her labia Physical Exam 2 Exam: Exam: CONST: Alert and oriented, in NAD. Well nourished HEENT: Normocephalic, atraumatic, MMM, Eyes clear, Neck supple RESP: Lungs clear, RRR even and regular HEART:,RRR, S1, S2. No edema GI:Abdomen Soft NT, ND. + BS times four :Deferred SKIN: Warm dry and intact, no visible lesions or rashes NEURO:CN II-XII Intact bilaterally, Sensation intact. Speech clear PSYCH: Normal affect Vital Signs: Vital Signs: Last Vital Signs Temp 97.3 F 12/27/24 07:50 Pulse 110 H 12/27/24 07:50 Resp 18 12/26/24 20:00 BP 155/94 H 12/27/24 07:50 Pulse Ox 98 12/27/24 07:50 O2 Del Method Room Air 12/27/24 07:50 BMI result Body Mass Index 36.8 Objective Data Active Medications Acetaminophen (Acetaminophen 325 Mg Tablet) 650 mg PO Q6H PRN PRN Reason: Headache/Pain, Scale 1-10 Last Admin: 12/23/24 18:17 Dose: 650 mg Documented By: HUNG Al Hydroxide/Mg Hydroxide (Magnesium Hydrox/Alum Hydrox 30 Ml Oral.Susp) 30 ml PO Q6H PRN PRN Reason: Heartburn/Nausea Albuterol Sulfate (Albuterol Sulfate 90 Mcg 8 Gm Inhaler) 2 puff INHALE Q4H PRN PRN Reason: Wheezing Last Admin: 12/27/24 13:00 Dose: 2 puff Documented By: ROXIE Benztropine Mesylate (Benztropine Mesylate 1 Mg Tablet) 1 mg PO BID [facility] Last Admin: 12/27/24 08:26 Dose: 1 mg Documented By: TALIA Clonidine HCl (Clonidine Hcl 0.1 Mg Tablet) 0.1 mg PO BID [facility]; Protocol Last Admin: 12/27/24 08:26 Dose: 0.1 mg Documented By: TALIA Diphenhydramine HCl (Diphenhydramine Hcl 25 Mg Capsule) 50 mg PO Q4H PRN PRN Reason: agitation, anxiety Last Admin: 12/27/24 15:44 Dose: 50 mg Documented By: TALIA Fluticasone/Vilanterol (Fluticasone/Vilanterol 100/25 Blst.W.Dev) 1 puff INHALE RDAILY [facility] Last Admin: 12/27/24 08:27 Dose: 1 puff Documented By: TALIA Guaifenesin (Guaifenesin 100 Mg/5 Ml 5 Ml Liquid) 5 ml PO Q6H PRN PRN Reason: Cough Last Admin: 12/26/24 20:50 Dose: 5 ml Documented By: KEVIN Hydroxyzine HCl (Hydroxyzine Hcl 25 Mg Tablet) 25 mg PO Q6H PRN PRN Reason: mild anxiety Last Admin: 12/27/24 13:00 Dose: 25 mg Documented By: ROXIE Ibuprofen (Ibuprofen 600 Mg Tablet) 600 mg PO Q6H PRN PRN Reason: Pain, Mild (Pain Scale 1-3) Levothyroxine Sodium (Levothyroxine Sodium 50 Mcg Tablet) 50 mcg PO DAILY@0600 [facility] Last Admin: 12/27/24 06:39 Dose: 50 mcg Documented By: KEVIN Magnesium Hydroxide (Milk Of Magnesia 30 Ml Oral.Susp) 30 ml PO DAILY PRN PRN Reason: Constipation Melatonin (Melatonin 3 Mg Tablet) 3 mg PO BEDTIME [facility] Last Admin: 12/26/24 20:18 Dose: 3 mg Documented By: KEVIN Metformin HCl (Metformin Hcl Er 500 Mg Tab.Er.24h) 500 mg PO DAILY [facility] Last Admin: 12/27/24 08:27 Dose: 500 mg Documented By: TALIA Naloxone HCl (Naloxone Hcl Nasal 4 Mg [place]) 4 mg NOSTRILALT ONCE PRN PRN Reason: opiate od Nicotine Polacrilex (Nicotine Polacrilex 2 Mg Gum) 4 mg BUCCAL Q2H PRN PRN Reason: Nicotine Cravings Olanzapine (Olanzapine 5 Mg Tablet) 5 mg PO Q4H PRN PRN Reason: severe agitation,psychosis Last Admin: 12/27/24 09:37 Dose: 5 mg Documented By: TALIA Ondansetron HCl (Ondansetron Odt 4 Mg Tab.Rapdis) 4 mg TRANSLINGU Q8H PRN PRN Reason: Nausea and Vomiting Prazosin HCl (Prazosin Hcl 1 Mg Capsule) 2 mg PO BEDTIME [facility]; Protocol Last Admin: 12/26/24 20:18 Dose: 2 mg Documented By: KEVIN Risperidone (Risperidone 2 Mg Tablet) 2 mg PO BID [facility] Last Admin: 12/27/24 08:27 Dose: 2 mg Documented By: TALIA Risperidone (Risperidone 0.5 Mg Tablet) 0.5 mg PO BID PRN PRN Reason: psychosis Last Admin: 12/27/24 09:37 Dose: 0.5 mg Documented By: TALIA Sodium Chloride (Sodium Chloride 0.65 % Nasal 44 Ml Sprbtl) 1 spray NOSTRIL-B Q1H PRN PRN Reason: dry nares Last Admin: 12/27/24 09:34 Dose: 1 spray Documented By: TALIA Trazodone HCl (Trazodone Hcl 50 Mg Tablet) 50 mg PO BEDTIME MRX1 PRN PRN Reason: Insomnia Last Admin: 12/26/24 20:24 Dose: 50 mg Documented By: KEVIN Labs 12/25/24 08:08 Labs: Laboratory Results - last 24 hr 12/25/24 15:24 HSV I IgG Ab 42.60 H HSV II IgG 11.90 H Assessment and Plan (1) HSV (herpes simplex virus) infection: Status: Acute Plan 39-year-old female with a past medical history as listed below presented to the ED at [facility] initially with a asthma exacerbation, expressed suicide ideation and felt to be appropriate for inpatient level of care. Admitted here for further care. Herpes simplex 1 and 2 Patient with a active outbreak We will start acyclovir 400 mg t.i.d. for 7 days Recommend providing patient with a outpatient script for acyclovir 400 mg orally 3 times a day for 7 days with 1 refill. Recommend patient use protection with any sexual contact during active outbreak Recommend follow up with her PCP This note is constructed using voice recognition software. While every effort has been made to ensure accuracy, stave cutting supervisor errors may have been included. Quality Stroke Does the patient have a stroke diagnosis?: No VTE Prior VTE?: No VTE Risk Level:: Medical - low VTE Device Contraindication: Treatment Not Indicated VTE Drug Contraindication: Treatment Not Indicated
[2024-12-27 19:59] VITALS: BP 171/90
[2024-12-27 20:00] VITALS: BP 171/90; PULSE 109; RESP 18; TEMP 36.4
[2024-12-27 20:02] VITALS: BP 171/90
[2024-12-28 07:45] VITALS: BP 140/98; PULSE 98; TEMP 36.3; O2SAT 95
[2024-12-28 07:47] VITALS: BP 180/98
[2024-12-28] MEDS: Albuterol Sulfate 90 MCG 8 GM INHALER 2 PUFF INHALE (08:38)
[2024-12-28] MEDS: Fluticasone/Vilanterol 100/25 BLST.W.DEV 1 PUFF INHALE (08:39)
--- NOTE | 2025-01-06 16:29 | PM.PSYDC ---
DS: Providers Provider Date of Service: 12/28/24 Date of admission: 12/21/24 15:16 Date of discharge: 12/28/24 Primary care physician: Unknown Physician Admitting clinician: Ruma Mcneill Attending physician on admission: Albaro Jones Consults: 12/21/24 16:27 Consult to Hospitalist Routine Comment: Consulting Provider: [facility] Reason For Exam: admission physical DS: Diagnosis Discharge Diagnosis (1) Psychosis: Status: Acute (2) Cocaine use disorder: Status: Acute DS: Medications Discharge Medications Home Medications: Previous Rx's ?Medication ?Instructions ?Recorded acetaminophen 325 mg tablet 650 mg (2 x 325 mg) PO Q6H PRN 12/27/24 Headache/Pain, Scale 1-10 #0 tabs acyclovir 200 mg capsule 400 mg (2 x 200 mg) PO TID #21 caps 12/27/24 albuterol sulfate 90 mcg/actuation 2 puff inhalation Q4H PRN wheezing 12/27/24 aerosol inhaler (Ventolin HFA) #1 inhaler benztropine 1 mg tablet 1 mg PO BID #60 tabs 12/27/24 clonidine HCl 0.1 mg tablet 0.1 mg PO BID #60 tabs 12/27/24 diphenhydramine HCl 25 mg capsule 50 mg (2 x 25 mg) PO Q4H PRN 12/27/24 (Banophen) agitation, anxiety #10 caps fluticasone 250 mcg-salmeterol 50 1 inh inhalation BID #1 inhaler 12/27/24 mcg/dose blistr powdr for inhalation (Advair Diskus) hydroxyzine HCl 25 mg tablet 25 mg PO Q6H PRN mild anxiety #10 12/27/24 tabs ibuprofen 600 mg tablet 600 mg PO Q6H PRN Pain, Mild (Pain 12/27/24 Scale 1-3) #0 tabs levothyroxine 50 mcg tablet 50 mcg PO DAILY@0600 #30 tabs 12/27/24 melatonin 3 mg tablet 3 mg PO BEDTIME #30 tabs 12/27/24 metformin 500 mg tablet,extended 500 mg PO DAILY #30 tabs 12/27/24 release 24 hr naloxone 4 mg/actuation nasal 4 mg intranasal (ALT) ONCE PRN 12/27/24 spray (Narcan) opiate od #2 ea olanzapine 5 mg tablet 5 mg PO Q4H PRN severe 12/27/24 agitation,psychosis #10 tabs prazosin 2 mg capsule 2 mg PO BEDTIME #30 caps 12/27/24 risperidone 2 mg tablet 2 mg PO BID #60 tabs 12/27/24 sodium chloride 0.65 % nasal spray 1 spray intranasal Q1H PRN dry 12/27/24 aerosol ([place] Nasal) nares #88 mL trazodone 50 mg tablet 50 mg PO BEDTIME MRX1 PRN Insomnia 12/27/24 #30 tabs DS: Summary Time Spent with Patient Time attestation: Total time managing care of this patient today ____ minutes. Discharge Plan Discharge Anticipated Discharge Date/Time: 12/28/24 08:00 Patient Disposition: Xfer Other Discharge Diagnosis: Psychosis Cocaine use disorder HSV Hypothyroidism Referrals: Clinical and support options: Julia Smith [Other] - 12/30/24 10:00 am Referral Note: Hospital discharge appointment Initial diagnostic evaluation for therapy and psychiatric medication management Appointment is in person at [facility] on [facility]. Physician,Unknown J [Primary Care Provider, Medical] - 1 Week Referral Note: Pt declined f/u appointment with PCP. Discharge Medications: New clonidine HCl 0.1 mg Tablet 0.1 mg PO BID Qty: 60 0RF Protocol: Hold for SBP< HOLD for SBP < : 90 acetaminophen 325 mg Tablet 650 mg PO Q6H PRN (Reason: Headache/Pain, Scale 1-10) Qty: 0 0RF trazodone 50 mg Tablet 50 mg PO BEDTIME MRX1 PRN (Reason: Insomnia) Qty: 30 0RF olanzapine 5 mg Tablet 5 mg PO Q4H PRN (Reason: severe agitation,psychosis) Qty: 10 0RF risperidone 2 mg Tablet 2 mg PO BID Qty: 60 0RF levothyroxine 50 mcg Tablet 50 mcg PO DAILY@0600 Qty: 30 0RF diphenhydramine HCl [Banophen] 25 mg Capsule 50 mg PO Q4H PRN (Reason: agitation, anxiety) Qty: 10 0RF benztropine 1 mg Tablet 1 mg PO BID Qty: 60 0RF hydroxyzine HCl 25 mg Tablet 25 mg PO Q6H PRN (Reason: mild anxiety) Qty: 10 0RF acyclovir 200 mg Capsule 400 mg PO TID Qty: 21 1RF ibuprofen 600 mg Tablet 600 mg PO Q6H PRN (Reason: Pain, Mild (Pain Scale 1-3)) Qty: 0 0RF [place] Nasal 0.65 % Aerosol,[place] 1 spray intranasal Q1H PRN (Reason: dry nares) Qty: 88 0RF naloxone [Narcan] 4 mg/actuation [place],Non-Aerosol 4 mg intranasal (ALT) ONCE PRN (Reason: opiate od) Qty: 2 0RF melatonin 3 mg Tablet 3 mg PO BEDTIME Qty: 30 0RF metformin 500 mg Tablet Extended Release 24 Hr 500 mg PO DAILY Qty: 30 0RF prazosin 2 mg capsule 2 mg PO BEDTIME Qty: 30 0RF Continued fluticasone propion-salmeterol [Advair Diskus] 250-50 mcg/dose Blister With Device 1 inh INHALATION BID Qty: 1 0RF albuterol sulfate [Ventolin HFA] 90 mcg/actuation HFA aerosol inhaler 2 puff inhalation Q4H PRN (Reason: wheezing) Qty: 1 0RF Discontinued ondansetron 4 mg tablet,disintegrating 4 mg PO Q8H PRN (Reason: nausea and vomiting) Qty: 20 0RF quetiapine 100 mg tablet 100 mg PO BEDTIME clonidine HCl 0.2 mg tablet 0.2 mg PO BID Discharge Orders: Discharge Order (Routine); Ordered 12/28/24 Ordered By: Ruma Mcneill Diet: Advance to usual diet Activity on Discharge: As tolerated Stand Alone Forms: Patient Portal Discharge page, Community Support Print Language: Chinese Care Plan Goals: Mood and Behavioral Stabilization Abstinence from Substances Health Concerns: Mood and Behavioral Stabilization Abstinence from Substances Plan of Treatment: Attend scheduled appointments Take medications as directed You have started Acyclovir for HSV. Use protection with sexual contact when you have an active outbreak. Assessment: Denies SI,HI,AH,VH Agrees with discharge plan of care Discharge Date/Time: 12/28/24 08:45
== END 2024-12-28 08:45 | disposition other institution (70) | DRG 751 ==
PROVIDERS: Admitting Provider Psychiatry & Neurology Psychiatry; Visit Provider Clinical Nurse Specialist Psychiatric/Mental Health, Adult
DX: F29 Unspecified psychosis not due to a substance or known physiological condition (principal); J45.901 Unspecified asthma with (acute) exacerbation; R45.851 Suicidal ideations; F43.10 Post-traumatic stress disorder, unspecified; E03.9 Hypothyroidism, unspecified; E11.9 Type 2 diabetes mellitus without complications; F14.10 Cocaine abuse, uncomplicated; B00.1 Herpesviral vesicular dermatitis; F17.210 Nicotine dependence, cigarettes, uncomplicated; Z71.6 Tobacco abuse counseling; Z79.51 Long term (current) use of inhaled steroids; Z79.84 Long term (current) use of oral hypoglycemic drugs; Z79.890 Hormone replacement therapy; Z79.899 Other long term (current) drug therapy
CPT/HCPCS: 36415; 80061; 82565; 82607; 82746; 83036; 83735; 84439; 84443; 86695; 86696; 86780; 87491; 87591

== ENCOUNTER → 2024-12-21 15:16 | Outpatient (BNV) | payer OTHER, SELFPAY | PROVIDERS: Admitting Provider Psychiatry & Neurology Psychiatry; Visit Provider Clinical Nurse Specialist Psychiatric/Mental Health, Adult | DX: F29 Unspecified psychosis not due to a substance or known physiological condition (principal); F14.10 Cocaine abuse, uncomplicated | CPT/HCPCS: 99232 ==

== ENCOUNTER → 2024-12-21 15:16 | Outpatient (BNV) | payer MEDICAID, SELFPAY | PROVIDERS: Admitting Provider Psychiatry & Neurology Psychiatry; Visit Provider Nurse Practitioner Family | DX: B00.9 Herpesviral infection, unspecified (principal) | CPT/HCPCS: 99231; 99499 ==